=== PATIENT | female | born 1955 | race Caucasian/White ===

== ENCOUNTER 2022-07-16 12:55 | Emergency (ER) | payer MEDICARE, SELFPAY ==
[2022-07-16 13:04] VITALS: BP 175/110; PULSE 74; RESP 18; TEMP 36.5; O2SAT 95; BMI 22.7
--- NOTE | 2022-07-16 13:26 | CRLHL7_ITS ---
For Patients: As a result of the Century Cures Act, medical imaging exams and procedure reports are released immediately into your electronic medical record. You may view this report before your referring provider. If you have questions, please contact your health care provider. Indication: Left shoulder pain. Technique: Left shoulder 3 views. Comparison: None. FINDINGS/IMPRESSION: Acute complete comminuted fracture of the humeral neck with approximately 3 large fragments. There is medial displacement and lateral angulation the distal fracture fragment. Remaining osseous structures are intact. Dictated by Frankie Alvares MD @ 07/16/2022 2:24:32 PM (Electronically Signed)
--- NOTE | 2022-07-16 13:27 | ED.GENADULT ---
HPI - General Adult General Chief complaint: Shoulder Injury/Pain Stated complaint: Fell injured LT shoulder Time Seen by Provider: 07/16/22 12:57 History of Present Illness HPI narrative: This 67-year-old female comes in with an injury to her left shoulder that occurred just prior to arrival. She slipped on ice and fell onto her left shoulder. She has pain and swelling in the proximal portion of her left humerus. She states that she did bump her head but did not have any loss of consciousness. She does not report any other injury. She was able to get up and ambulate after the fall. Prior to this she has been in good health. Related Data Home Medications Medication Instructions Recorded Confirmed atenolol 50 mg tablet mg 07/16/22 lisinopril 40 mg tablet mg 07/16/22 Previous Rx's Medication Instructions Recorded hydrocodone 5 mg-acetaminophen 325 1 tab PO Q4-6H PRN pain #30 tabs 07/16/22 mg tablet Allergies Allergy/AdvReac Type Severity Reaction Status Date / Time No Known Drug Allergies Allergy Verified 07/16/22 13:03 Review of Systems Status of ROS: Reports: 10 or more systems reviewed and unremarkable except as noted in History and below Narrative: Constitutional: No fevers, no weight gain or loss. Eyes: No discharge. No vision changes. HENT: No congestion, no sore throat, no ear pain. Cardiovascular: No chest pain, no palpitations. Respiratory: No shortness of breath, no wheezes, no cough. Gastrointestinal: No abdominal pain, no vomiting, no diarrhea. Genitourinary: No dysuria, no hematuria. Musculoskeletal: Left shoulder injury as described above. Skin: No rashes, no pruritis. Neurological: No dizziness, weakness, sensory change, speech change. Endo/Heme/Allergies: No bruising or bleeding. No polydipsia. Pysch: no suicidality, no anxiety, no insomnia. All other systems reviewed and are negative. Exam Narrative: Exam Narrative: Constitutional: Well-developed, well-nourished, no acute distress. HEENT: Normocephalic, atraumatic. Neck: Normal range of motion. Nontender. Supple. Heart: Regular. No murmurs. Normal rate. Intact distal pulses. Lungs: Clear to auscultation. No chest discomfort. No wheezes, rhonchi, or rales. Abdomen: Normal bowel sounds. Nontender. No rebound tenderness. Genitalia: Deferred. Back: No midline tenderness. Normal range of motion. Extremities: Pain and swelling in the left proximal humerus. No pain when palpating along the left clavicle. Skin: Intact. No rash. Warm. No erythema or pallor. Neurologic: No altered sensation. No weakness. Alert and oriented. Psychiatric: No suicidality. No anxiety or depression. No insomnia. Nursing notes and vitals signs are reviewed. Const: Vital Signs, click to edit/add: Vital Signs - 24 hr 07/16/22 13:04 07/16/22 13:48 07/16/22 14:20 Temperature 97.7 F Pulse Rate [Right Pulse Oximeter] 74 70 60 Respiratory Rate 18 18 Blood Pressure [Ri ght Upper Arm] 175/110 H Pulse Oximetry 95 99 95 Oxygen Delivery Me thod Room Air Room Air Course Vital Signs Vital signs: Initial Vital Signs Temperature 97.7 F 07/16/22 13:04 Temperature Source Temporal Artery Scan 07/16/22 13:04 Pulse Rate 74 07/16/22 13:04 Respiratory Rate 18 07/16/22 13:04 Blood Pressure 175/110 H 07/16/22 13:04 Blood Pressure Mean 131 07/16/22 13:04 Blood Pressure Position Sitting 07/16/22 13:04 Pulse Oximetry 95 07/16/22 13:04 Oxygen Delivery Method 07/16/22 13:04 Vital Signs Temperature 97.7 F 07/16/22 13:04 Pulse Rate 74 07/16/22 13:04 Respiratory Rate 18 07/16/22 13:04 Blood Pressure 175/110 H 07/16/22 13:04 Pulse Oximetry 95 07/16/22 13:04 Oxygen Delivery Method 07/16/22 13:04 Temperature 97.7 F 07/16/22 13:04 Pulse Rate 60 07/16/22 14:20 Respiratory Rate 18 07/16/22 13:48 Blood Pressure 175/110 H 07/16/22 13:04 Pulse Oximetry 95 07/16/22 14:20 Oxygen Delivery Method 07/16/22 14:20 Medical Decision Making MDM Narrative Medical decision making narrative: This 67-year-old female has an injury to her left shoulder. X-ray images show a comminuted fracture of the proximal left humerus. The patient received an intramuscular injection of morphine 10 mg. She is placed in a sling and arrangements are made for follow-up appointment with orthopedic clinic. She also received a prescription for [place]. Imaging Data XR L Shoulder: Radiologist's impression: Acute complete comminuted fracture of the humeral neck with approximately 3 large fragments. There is medial displacement and lateral angulation the distal fracture fragment. Remaining osseous structures are intact. Discharge Plan Discharge Clinical Impression: Fracture, humerus Patient Disposition: Home w/ Parent or Adult Condition: Unchanged Additional Instructions: Wear sling and take medication for pain as needed and directed. Follow up with orthopedic clinic appointment as scheduled. Return if worsening. Prescriptions: New hydrocodone-acetaminophen 5-325 mg tablet 1 tab PO Q4-6H PRN (Reason: pain) Qty: 30 0RF No Action lisinopril 40 mg tablet Label Comments: TAKE 1 TABLET BY MOUTH EVERY DAY atenolol 50 mg tablet Label Comments: TAKE 1 TABLET BY MOUTH EVERY DAY Follow Up/Referrals: Frankie Rosas MD [Primary Care Provider] - Stand Alone Forms: [employer] Info Instructions
[2022-07-16] MEDS: MORPHINE 10 MG/ML inj IM (13:34)
[2022-07-16 13:48] VITALS: PULSE 70; RESP 18; O2SAT 99
[2022-07-16 14:20] VITALS: PULSE 60; O2SAT 95
== END 2022-07-16 15:06 | disposition home or self-care (01) ==
PROVIDERS: Emergency Provider Emergency Medicine Emergency Medical Services; PCP Family Medicine
DX: S42.232A 3-part fracture of surgical neck of left humerus, initial encounter for closed fracture (principal); W00.0XXA Fall on same level due to ice and snow, initial encounter
CPT/HCPCS: 73030; 96372; 99283; 99284; J2270

== ENCOUNTER 2022-07-19 13:34 | Outpatient (CLI) | payer MEDICARE, SELFPAY ==
[2022-07-19 21:51] LABS: Chloride* 99 mmol/L (96-114)
[2022-07-19 21:52] LABS: Potassium* 3.8 mmol/L (3.6-5.1); Sodium* 130 mmol/L (135-149)
[2022-07-19 21:54] LABS: Carbon Dioxide* 23 mmol/L (20-32); Creatinine* 0.6 mg/dL (0.5-1.5); Estimated Glomerular Filt Rate 99 ml/min
[2022-07-19 21:55] LABS: Blood Urea Nitrogen* 10 mg/dL (7-30); Calcium* 8.5 mg/dL (8.4-10.6); Glucose* 166 mg/dL (60-115)
[2022-07-19 23:03] LABS: Basophils Absolute Auto 0.02 K/uL (0.00-0.30); Basophils Percent Auto 0.2 % (0.0-3.0); Eosinophils Absolute Auto 0.02 K/uL (0.00-0.50); Eosinophils Percent Auto 0.2 % (0.0-7.0); Hematocrit 28.5 % (33.0-51.0); Hemoglobin* 9.7 gm/dL (12.0-16.0); Immature Granulocytes Abs Auto 0.07 K/uL (0.00-0.30); Immature Granulocytes Pct Auto 0.7 %; Mean Corpuscular HGB Conc 34 gm/dL (32-36); Mean Corpuscular Hemoglobin 31 pg (26-34); Mean Corpuscular Volume 90 fL (80-100); Monocytes Percent Auto 8.6 % (0.0-11.0); Neutrophils Percent Auto 83.3 % (42.0-72.0); Platelet Count* 238 K/uL (140-440); RDW Coefficient of Variation % 12.3 % (11.5-15.5); Red Blood Count 3.17 m/uL (4.00-5.20); White Blood Count* 10.55 K/uL (4.50-11.00)
[2022-07-19 23:26] LABS: Slide Review Reflex No
== END 2022-07-19 13:35 | disposition home or self-care (01) ==
PROVIDERS: PCP Family Medicine; Visit Provider Nurse Practitioner Family
DX: Z01.818 Encounter for other preprocedural examination (principal)
CPT/HCPCS: 80048; 85025

== ENCOUNTER 2022-07-20 08:22 | Day surgery (SDC) | payer MEDICARE, SELFPAY ==
[2022-07-20] VITALS (15 sets, daily range): BP systolic 121–174; BP diastolic 65–97; PULSE 72–90; RESP 15–20; TEMP 36.5–37.2; O2SAT 93–100; BMI 26.1
[2022-07-20] MEDS: SODIUM CHLORIDE 0.9 % (FLUSH) 10 ML SYRINGE IVF (09:20)
[2022-07-20] MEDS: LACTATED RINGERS 1000 ML 1,000 ML 100 ML IV ×2 (09:20→14:05)
--- NOTE | 2022-07-20 09:33 | SUR.PREOP ---
home covid test negative
--- NOTE | 2022-07-20 09:36 | SUR.PREOP ---
TIME?OUT:?1039 PT/RN/MDA?VERIFICATION?OF?SURGICAL?SITE,?PROCEDURE,?AND?CONSENT OBTAINED?PRIOR?TO?INVASIVE?PROCEDURE.
[2022-07-20] MEDS: MIDAZOLAM HCL 1 MG/ML inj IVP (10:40)
[2022-07-20] MEDS: fentaNYL 100 MCG/2 ML inj IVP (10:40)
--- NOTE | 2022-07-20 10:44 | W.PM.NB ---
Nerve Block Nerve Block Time Seen by Provider: 10:41 Date Seen: 07/20/22 Type of block requested by surgeon for post-operative analgesia: supraclavicular Side: left Time out performed: Yes Verification of patient name: Yes Verification of date of : Yes Site marking: site marked Name of person performing procedure: Deondre Continuous monitoring Was continuous monitoring of O2 sat, B/P, quality assurance monitor final, recorded every 15 minutes?: Yes Procedure Checklist: sterile prep, needles and gloves Ultrasound guided. Images saved: Yes Medications given in 5ml increments after negative aspiration: Ropivicaine %: 0.5 mL: 20 Needle gauge: 22 Decadron (mg): 10 Precedex (mcg): 25 Patient tolerated procedure well: Yes Block Charges Block Charge (with Pro Fee): Brachial Plexus Use of Ultrasound Machine for Block: Yes- US Guidance/pain block
--- NOTE | 2022-07-20 11:15 | CRLHL7_ITS ---
For Patients: As a result of the Cures Act, medical imaging exams and procedure reports are released immediately into your electronic medical record. You may view this report before your referring provider. If you have questions, please contact your health care provider. Indication: ORIF LEFT HUMERUS Technique: One fluoroscopic image of the left shoulder. Fluoroscopic time 48.4 seconds. IMPRESSION: Fluoroscopic guidance for open reduction internal fixation of proximal humeral fracture. Dictated by Frankie Braswell MD @ 07/20/2022 3:36:26 PM (Electronically Signed)
--- NOTE | 2022-07-20 13:20 | W.ANESCHARGE ---
Anesthesia Charges Start Date/Time Anesthesia Start Date: 07/20/22 Anesthesia Start Time: 10:50 Stop Date/Time Anesthesia Stop Date: 07/20/22 Anesthesia Stop Time: 13:15 Summary Emergency: No
--- NOTE | 2022-07-20 13:44 | W.ANESCHARGE ---
Anesthesia Charges Start Date/Time Anesthesia Start Date: 07/20/22 Anesthesia Start Time: 10:50 Stop Date/Time Anesthesia Stop Date: 07/20/22 Anesthesia Stop Time: 13:15 Summary Emergency: No
--- NOTE | 2022-07-20 13:51 | SUR.PHASEI ---
patient met discharge criteria per anesthesia
--- NOTE | 2022-07-20 14:26 | P.ORPRC_ITS ---
Procedure Note Date of procedure: 07/20/22 Procedure: PREOPERATIVE DIAGNOSES: 1. Left proximal humerus fracture - primarily surgical neck with significant varus deformity and shortening. Extra-articular. Acute. POSTOPERATIVE DIAGNOSES: 1. Left proximal humerus fracture - primarily surgical neck with significant varus deformity and shortening. Extra-articular. Acute. NAME OF OPERATION: 1. Left proximal humerus open reduction internal fixation 2. 48866 - intraoperative fluoroscopy up to 1 hour. SURGEON: Jw Ceballos MD BLOCKER HEATED METAL FORMS: Renan Lopez - Of note, a skilled medical assistant was critical for this case to aide in patient positioning, limb manipulation, tissue retraction, closure, and splinting. ANESTHESIA: General endotracheal anesthetic plus Supraclavicular block EBL: 150 mL IMPLANTS: Arthrex alpha full proximal humerus plate with locking proximal cancellous as well as locking and nonlocking distal cortical screws. TOURNIQUET: None. INDICATIONS: The patient is a pleasant, 67-year-old female who sustained a left shoulder injury after a fall. They presented to [facility] where x- rays were obtained and revealed a proximal humerus fracture with significant translation of the shaft relative to the head. They had difficulty with use of the extremity and deformity. Given these findings, surgery was recommended to improve the position and stablize the fracture. FINDINGS: Closed, 3 part primarily proximal humerus fracture with varus angulation and shortening and 100% displacement as well as comminution. Overall, the lesser and greater tuberosities were still in appropriate positions. PROCEDURE: Following a thorough discussion of risks, benefits, and alternatives, consent was obtained and the operative extremity was marked. The patient was brought to the operating room and placed supine on the operating table. Induction of anesthesia was achieved. Appropriate time out was performed identifying proper patient, site and procedure. 2 g IV Ancef was administered within 1 hour of incision preoperatively. The left upper extremity was prepped and draped in the appropriate sterile fashion using ChloraPrep prep. A longitudinal incision made for a deltopectoral approach extending distally to an anterolateral approach of the arm. Sharp incision through skin and blunt dissection through subcutaneous tissue allowed us to identify the cephalic vein. This was retracted laterally and severe throughout the case. Deltopectoral interval was identified and mobilized. Conjoined tendon was mobilized medially. The deltoid adhesions were mobilized from the humerus and the rotator cuff/subacromial space region. The bursa was excised with a rongeur. The proximal humerus was debrided of interposed periosteum and fracture hematoma. The fracture was decompressed with a combination of axial traction as well as Garcia elevator pushing on the humeral head. C-arm fluoroscopic imaging was utilized throughout the case to confirm proper realignment of the head relative to the shaft. The bicipital groove was utilized to help with rotational realignment. An Arthrex alpha plate was selected and temporally stabilized with K-wires. The height was confirmed as was the alignment on the humerus itself. The oblong holes in the cortical shaft was 1st drilled and a screw placed after confirming the proper height to be appropriate. Then, multiple proximal locking screws were placed. C-arm confirmed these to be extra-articular and within the humeral head itself. Distal locking screws were then placed to complete the fixation. C-arm again confirmed on both AP and lateral planes of the humerus that the fracture reduction was in appropriate position. Screws were found to be extra-articular. No crepitus was found with range of motion. At this stage, the wound was thoroughly irrigated with normal saline. Closure performed with 0 Vicryl for the deltoid reapproximation. Then, 3-0 Vicryl for the subcutaneous, and 4-0 Monocryl for subcuticular closure. Dressings were applied and the patient was awoken from anesthesia and transferred to PACU in stable condition. A skilled medical assistant was critical for this case to aid in patient positioning, tissue retraction, limb manipulation/positioning, awareness and protection of critical structures, and closure. PLAN: 1. Sling to operative extremity. May come out of this for elbow, forearm, wrist, digit range of motion and pendulums of the shoulder. 2. Ice, acetominphen or ibuprofen PRN. 3. Percocet for pain as needed. 4. Follow up with PA visit in 7-10 days for wound check and initiation of physical therapy for passive range of motion and edema control and periscapular strengthening.
== END 2022-07-20 14:43 | disposition home or self-care (01) ==
PROVIDERS: Visit Provider Orthopaedic Surgery Sports Medicine
PROC: (CPT 23615; principal; 2022-07-20 11:15)
DX: S42.292A Other displaced fracture of upper end of left humerus, initial encounter for closed fracture (principal); M25.512 Pain in left shoulder
CPT/HCPCS: 23615; 01630; 64415; 73060; 76000; 76942; C1713; J0330; J1100; J1170; J2250; J2405; J2704; J2795; J3010; J7120

== ENCOUNTER 2022-09-30 13:38 | Outpatient (CLI) | payer MEDICARE, SELFPAY ==
[2022-09-30 15:21] LABS: Basophils Absolute Auto 0.03 K/uL (0.00-0.30); Basophils Percent Auto 0.3 % (0.0-3.0); Eosinophils Absolute Auto 0.14 K/uL (0.00-0.50); Eosinophils Percent Auto 1.5 % (0.0-7.0); Hemoglobin* 11.8 gm/dL (12.0-16.0); Immature Granulocytes Abs Auto 0.01 K/uL (0.00-0.30); Immature Granulocytes Pct Auto 0.1 %; Lymphocytes Percent Auto 12.5 % (20-44); Mean Corpuscular HGB Conc 32 gm/dL (32-36); Mean Corpuscular Hemoglobin 28 pg (26-34); Mean Corpuscular Volume 88 fL (80-100); Monocytes Percent Auto 10.8 % (0.0-11.0); Neutrophils Percent Auto 74.8 % (42.0-72.0); Platelet Count* 388 K/uL (140-440); RDW Coefficient of Variation % 12.6 % (11.5-15.5); Red Blood Count 4.22 m/uL (4.00-5.20)
[2022-09-30 15:25] LABS: Albumin* 3.8 g/dL (3.3-5.0); Chloride* 105 mmol/L (96-114); Potassium* 4.2 mmol/L (3.6-5.1); Sodium* 136 mmol/L (135-149)
[2022-09-30 15:27] LABS: Aspartate Amino Transferase* 26 U/L (12-35); Bilirubin Total* 0.3 mg/dL (0.1-1.5); Blood Urea Nitrogen* 9 mg/dL (7-30); Carbon Dioxide* 24 mmol/L (20-32); Cholesterol* 161 mg/dL (90-199); Creatinine* 0.6 mg/dL (0.5-1.5); Estimated Glomerular Filt Rate 99 ml/min; Total Protein* 7.6 g/dL (6.0-8.3)
[2022-09-30 15:28] LABS: Alanine Aminotransferase* 20 U/L (4-35); Alkaline Phosphatase* 85 U/L (40-150); Calcium* 9.3 mg/dL (8.4-10.6); Glucose* 108 mg/dL (60-115); HDL Cholesterol* 45 mg/dL (>=50); LDL Cholesterol Calculated 95 mg/dL (<100); Slide Review Reflex No; Triglycerides* 106 mg/dL (40-149)
== END 2022-09-30 13:39 | disposition home or self-care (01) ==
PROVIDERS: PCP Nurse Practitioner Family; Visit Provider Nurse Practitioner Family
DX: M54.9 Dorsalgia, unspecified (principal); R32 Unspecified urinary incontinence; R10.32 Left lower quadrant pain; I10 Essential (primary) hypertension; R73.9 Hyperglycemia, unspecified; Z13.6 Encounter for screening for cardiovascular disorders
CPT/HCPCS: 80053; 80061; 85025; 87086

== ENCOUNTER 2022-10-19 07:43 | Outpatient (CLI) | payer MEDICARE, SELFPAY ==
--- NOTE | 2022-10-19 08:00 | CRLHL7_ITS ---
For Patients: As a result of the Century Cures Act, medical imaging exams and procedure reports are released immediately into your electronic medical record. You may view this report before your referring provider. If you have questions, please contact your health care provider. Indication: LLQ PAIN, CONSTIPATION, CRAMPING Technique: Postcontrast CT abdomen and pelvis. 78 cc Isovue 370 intravenous contrast. Please note that all CT scans at this facility use dose modulation, iterative reconstruction, and/or weight-based dosing when appropriate to reduce radiation dose to as low as reasonably achievable. Comparison: None Findings: Minimal scarring is present within both lung bases. No pleural effusion. There is no suspicious intrahepatic mass. Mild cardiomegaly may be present. The adrenal glands are normal. Normal spleen. The kidneys are unremarkable. Normal pancreas. The gallbladder is within normal limits. Severe inflammatory changes involving the proximal sigmoid colon are present. The sigmoid colon wall measures up to approximately 1.1 cm. Intramural abscess formation appears to be present measuring approximately 2.6 cm, series 2, image 99. No bowel obstruction or free intraperitoneal air. Adjacent inflammatory stranding in the left lower quadrant mesenteric fat along with mildly prominent mesenteric lymph nodes. No venous thrombus. Chronic deformity involving the superior endplate of L5. Severe degenerative disc disease on the right at L2-3. Impression: Severe sigmoid colon diverticulitis with intramural abscess formation. Surgical referral recommended. Percutaneous aspiration is not indicated. Please note that all CT scans at this facility use dose modulation, iterative reconstruction, and/or weight-based dosing when appropriate to reduce radiation dose to as low as reasonably achievable. Dictated by Frankie Braswell MD @ 10/19/2022 1:14:16 PM (Electronically Signed)
== END 2022-10-19 07:44 | disposition home or self-care (01) ==
LOC: CT 07:43
PROVIDERS: PCP Nurse Practitioner Family; Visit Provider Nurse Practitioner Family
DX: R10.32 Left lower quadrant pain (principal); K57.32 Diverticulitis of large intestine without perforation or abscess without bleeding; K59.00 Constipation, unspecified
CPT/HCPCS: 74177; Q9967

== ENCOUNTER 2022-10-20 15:58 | Outpatient (CLI) | payer MEDICARE, SELFPAY ==
--- NOTE | 2022-10-20 16:00 | CRLHL7_ITS ---
For Patients: As a result of the Cures Act, medical imaging exams and procedure reports are released immediately into your electronic medical record. You may view this report before your referring provider. If you have questions, please contact your health care provider. Indication: Infected wound Technique: Grayscale sonographic images of the right internal jugular vein and right basilic vein. IMPRESSION: Sonographic guidance for right arm PICC line placement. Dictated by Frankie Braswell MD @ 10/21/2022 11:29:00 AM (Electronically Signed)
--- NOTE | 2022-10-20 16:00 | CRLHL7_ITS ---
For Patients: As a result of the Century Cures Act, medical imaging exams and procedure reports are released immediately into your electronic medical record. You may view this report before your referring provider. If you have questions, please contact your health care provider. INDICATION: Post PICC. TECHNIQUE: Chest 1 views. COMPARISON: None. FINDINGS: Cardiovascular and mediastinum: Cardiomediastinal silhouette is within normal limits. Right approach PICC is identified with distal tip at the superior cavoatrial junction. Lungs and pleural spaces: Lungs are clear. No sign of pleural effusion. No pneumothorax. Bones and soft tissues: No significant findings. IMPRESSION: Appropriately positioned PICC.. Dictated by Rupali Gray MD @ 10/20/2022 5:29:20 PM (Electronically Signed)
== END 2022-10-20 15:59 | disposition home or self-care (01) ==
LOC: US 15:59
PROVIDERS: PCP Nurse Practitioner Family; Visit Provider Nurse Practitioner Family
DX: K57.90 Diverticulosis of intestine, part unspecified, without perforation or abscess without bleeding (principal)
CPT/HCPCS: 36573

== ENCOUNTER 2022-10-26 14:45 | Outpatient (RCR) | payer MEDICARE, SELFPAY ==
--- NOTE | 2022-10-20 17:40 | PC.NURSE ---
PICC verified with X-ray. arm circumference 28cm per PICC nurse measurement
[2022-10-20] MEDS: ERTAPENEM 1 GM inj IVPB (17:41)
--- NOTE | 2022-10-20 18:31 | PC.NURSE ---
PATIENT PLEASANT AND COOPERATIVE, TOLERATED ABX INFUSION WELL.
[2022-10-21 15:13] VITALS: BP 155/90; PULSE 88; RESP 16; TEMP 36.6; O2SAT 94
[2022-10-21] MEDS: ERTAPENEM 1 GM inj IVPB (15:24)
[2022-10-22] MEDS: ERTAPENEM 1 GM inj IVPB (14:04)
[2022-10-22 14:05] VITALS: BP 196/97; PULSE 78; RESP 18; TEMP 35.8; O2SAT 99
--- NOTE | 2022-10-22 14:06 | PC.NURSE ---
Pt has h/o HTN. BP 196/97 on arrival. States reports she took her BP meds late this morning. Will recheck BP after infusion.
[2022-10-22] MEDS: 0.9 % SODIUM CHLORIDE 250 ml IV (14:27)
[2022-10-22] MEDS: SODIUM CHLORIDE 0.9 % (FLUSH) 10 ML SYRINGE 5 ML IVF (14:27)
[2022-10-22 14:56] VITALS: BP 189/85
--- NOTE | 2022-10-22 14:57 | PC.NURSE ---
BP remains high at 189/85. Patient expressing anxiety, but no other symptoms. Dr. Nice advise patient goes home, relax and recheck blood pressure. If remains elevated at 180 SBP or higher, patient to call primary clinic for further instructions. Pt tolerated IV antibiotic infusion well. PICC line site asymptomatic, line flushes easily.
[2022-10-23] MEDS: ERTAPENEM 1 GM inj IVPB (14:04)
[2022-10-23] MEDS: SODIUM CHLORIDE 0.9 % (FLUSH) 10 ML SYRINGE 5 ML IVF (14:08)
[2022-10-23 14:09] VITALS: BP 146/70; PULSE 75; RESP 16; TEMP 36.1; O2SAT 99
--- NOTE | 2022-10-23 14:37 | PC.NURSE ---
IV antibotic. Pt has been pleasant. abd pain/crampy 3-4/10. Pt tolerated IV antibiotic infusion well. PICC line site asymptomatic, line flushes easily. flushed before and after with no problems.
[2022-10-24 15:08] VITALS: BP 163/82; PULSE 74; RESP 16; TEMP 36.3; O2SAT 98
[2022-10-24] MEDS: ERTAPENEM 1 GM inj IVPB (15:11)
[2022-10-24 15:16] VITALS: BP 163/28; PULSE 74; RESP 16; TEMP 36.3; O2SAT 98
[2022-10-25 15:10] VITALS: BP 160/86; PULSE 76; RESP 16; TEMP 36.4; O2SAT 97
[2022-10-25] MEDS: 0.9 % SODIUM CHLORIDE 250 ml IV ×2 (15:15→15:16)
[2022-10-25] MEDS: ERTAPENEM 1 GM inj IVPB (15:15)
[2022-10-25] MEDS: SODIUM CHLORIDE 0.9 % (FLUSH) 10 ML SYRINGE 5 ML IVF (15:15)
[2022-10-26 15:07] VITALS: BP 166/78; PULSE 78; RESP 16; TEMP 36.2; O2SAT 98
[2022-10-26] MEDS: ERTAPENEM 1 GM inj IVPB (15:13)
== END 2022-10-27 16:00 | disposition home or self-care (01) ==
LOC: CCIC 14:45
PROVIDERS: PCP Nurse Practitioner Family; Referring Provider Nurse Practitioner Family; Visit Provider Nurse Practitioner Family
DX: K63.0 Abscess of intestine (principal)
CPT/HCPCS: 96365; 99211; C1751; J1335; J7050

== ENCOUNTER 2023-05-22 13:57 | Outpatient (CLI) | payer MEDICARE, SELFPAY | END 2023-05-22 13:58 | disposition home or self-care (01) | LOC: KYNREF 14:00 | PROVIDERS: PCP Nurse Practitioner Family; Visit Provider Nurse Practitioner Family | DX: I10 Essential (primary) hypertension (principal) | CPT/HCPCS: 85025 ==

== ENCOUNTER 2023-06-23 10:46 | Outpatient (CLI) | payer MEDICARE, SELFPAY | END 2023-06-23 10:47 | disposition home or self-care (01) | LOC: NFLDREF 06-26 01:22 | PROVIDERS: PCP Nurse Practitioner Family; Referring Provider Nurse Practitioner Family; Visit Provider Nurse Practitioner Family | DX: R32 Unspecified urinary incontinence (principal); I10 Essential (primary) hypertension; Z12.39 Encounter for other screening for malignant neoplasm of breast | CPT/HCPCS: 81015 ==

== ENCOUNTER 2023-07-07 16:46 | Outpatient (CLI) | payer MEDICARE, SELFPAY | END 2023-07-07 16:47 | disposition home or self-care (01) | PROVIDERS: PCP Nurse Practitioner Family; Visit Provider Nurse Practitioner Family | DX: N39.0 Urinary tract infection, site not specified (principal) | CPT/HCPCS: 81015; 87086 ==

== ENCOUNTER 2023-08-04 12:36 | Outpatient (CLI) | payer MEDICARE, SELFPAY | END 2023-08-04 12:37 | disposition home or self-care (01) | PROVIDERS: PCP Nurse Practitioner Family; Visit Provider Nurse Practitioner Family | DX: R30.0 Dysuria (principal) | CPT/HCPCS: 81015; 87086 ==

== ENCOUNTER 2023-09-01 10:30 | Outpatient (RCR) | payer MEDICARE, SELFPAY ==
--- NOTE | 2023-05-24 09:08 | PT.OPEX ---
PT [facility] Eval PT [facility] Outpatient Eval Start: 05/23/23 07:45 Freq: Status: Active Protocol: Document 05/23/23 07:46 AMS (Rec: 05/23/23 16:53 AMS [id number]) E-signed By Regi Arrington PT Physical Therapy Outpatient Evaluation Insurance Information Recert Due Date 08/16/23 Insurance Name Medicare B,Other; See Comments Insurance Information/Comments AARP Medical Diagnosis Bilateral hip pain Treating Diagnosis Right hip pain Left hip pain Low back pain Muscle weakness Difficulty walking Referring MD Marisol Garcia Subjective Subjective The patient is a pleasant 68- year-old female presenting ambulatory to the clinical setting today on hospital follow-up some [facility], the admission date was on , the discharge date was on 05/20/2023. principal diagnosis gastric soft a GHANSHYAM reflux disease with esophagitis with bleeding secondary diagnosis is: Principal problem gastroesophageal reflux disease with esophagitis with bleeding, atrial fibrillation paroxysmal, ulcer gastric, also does walk in all, anemia post hemorrhagic acute blood loss anemia. In reviewing the details of the hospital stay, the patient had black tarry stools, presenting to the emergency room on 05/15/2023 with a hemoglobin of 7.5, with lower blood pressures 90s over 50s, she is rehydrated with IV fluids transfuse with 1 unit of blood and after 1 unit her orthostatic symptoms resolved. The patient was PERT placed on a PPI IV. The patient did have some concerns for small thrombosis in the right lower lobe however a subsequent JUANA did not show a thrombosis the patient did undergo an EGD, which revealed an LA grade B esophagitis, hiatal hernia, a non bleeding gastric and duodenal ulcers, biopsy showed no dysplasia the patient initially was started on heparin which was discontinued , the thrombus was ruled out the patient did have a atrial fibrillation with RVR. - Marisol Garcia 05/22/23; confirmed by patient Patient presents to physical therapy for subacute right > left buttock/hip pain. She is 3 days s/p discharge from hospital for esophagitis w/ anemia at [facility] (see details above); she had one unit of blood transfused to stabilize hemoglobin. Per patient, her Hgb is now stabilized, but has some more testing in the next few weeks to further determine source of GI bleeding. In regards to today's visit, her buttock pain started gradually on the left side in mid-April without injury. It was located on the left side at first, then she went to the chiropractor for hip adjustment this month and it switched to the right side, located to the posterior hip/ buttock. She describes the pain as a stretch and ache in the buttock. Functional limitations/aggravating factors include walking longer than a short distance, standing longer periods, sleeping on her side, and lifting at work. Easing factors include Tylenol, using a cane in right hand, rest, and topical cream. She started using the single point cane 3 days ago after coming home from the hospital, but is independent at baseline without it. Denies hx of injury to the hip or low back. Does endorse intermittent N/T in her bilateral toes that started earlier this month and also intermittent midline low back pain that has been going on for over one year. Had X- rays of her hip done, which showed bilateral mild to moderate degenerative changes in her hips and lumbar spine. Her goals are to recover her strength, decrease hip pain, and walk without her cane again. She is not currently exercising, but stays active with her job at [employer]. 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 She is off work on leave until Monday. PMHx significant for atrial fibrillation with RVR, osteopenia, HTN, and stage II colon adenocarcinoma with resection in January. This PMHx was gathered via chart review , as pt denies any history of cancer/cardiac concerns. Patient reports she lives at home with her . States she takes stairs one at a time at home, as she is still recovering strength. Has had one fall in last year in July, when she broke her humerus and required ORIF surgery. She does feel a little unsteady. 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 Foot clearance improved with use of SPC. BALANCE Single leg stance: 2 sec BL END RANGE QUAD CONTROL Straight leg raise: No quad lag, more fatiguing on R LUMBAR ROM Flexion: To mid-inman, no pain Extension: 90% limited Right Sidebendin%, to knee Left Sidebendin%, to just above knee Right rotation: 100% Left rotation: 50% limited HIP ROM Flexion: 120/120 Extension: Unable to assess d/ t intolerance to prone position, appears WNL with gait Internal Rotation: WNL External Rotation: WNL Abduction: WNL LE MMT: Hip flexion: R 4/5 L 4+/5 Hip abduction: R 4/5 L 4+/5 Hip extension: Able to perform DL bridge with difficulty Knee flexion: R 4/5 L 4+/5 Knee extension: R 4/5 L 4+/5 30 sec STS: 9 reps SPECIAL TEST Hip Labral/Intra-articular Pathology: -JANEY: + right -FADIR: - -Log Roll: - Hip impingement: -Scour test: + right Low back SLR: - Hamstring 90-90: + BL Piriformis test: + right JOINT MOBILITY/PALPATION Unable to assess lumbar palpation/mobility d/t intolerance to prone position. Mild TTP over right gluteal musculature. No TTP over lateral hip. TX: Access Code: [email or web address] URL: [email or web address] Date: 05/23/2023 Prepared by: Rgei Arrington Exercises - Standing Lumbar Extension at Wall - Forearms - 1 x daily - 7 x weekly - 2-3 sets - 10 reps - Supine Lower Trunk Rotation - 1 x daily - 7 x weekly - 2- 3 sets - 10 reps - Supine Bridge - 1 x daily - 5 x weekly - 2-3 sets - 10 reps - Supine Straight Leg Raises - 1 x daily - 5 x weekly - 2-3 sets - 10 reps - Clamshell with Resistance - 1 x daily - 5 x weekly - 2-3 sets - 10 reps Functional Test Performed & Score JAYSON: Pt will fill out and return at next session Assessment Assessment/Impression Pt is a 68 -year-old female who presents with concerns of subacute right > left buttock/ hip pain and low to moderate severity and irritability. Signs and symptoms are likely indicating / consistent with hip osteoarthritis confirmed by X-rays/potential lumbar spine contribution to symptoms . X-ray also showed lumbar degenerative changes. On exam, patient also demonstrates notable objective findings including limited lumbar ROM, especially into extension/left sidebending and rotation, impaired balance, pain-free hip ROM, impaired gait, positive JANEY/Scour on right, and decreased general lower extremity strength R > L, leading to difficulties with walking, lifting for work, standing for longer periods, and sleeping on her sides. Pt does report intermittent N/T into bilateral feet, but no change in symptoms with repeated lumbar flexion/ extension. Notably, pt was hospitalized from 05/16 to for potential gastrointestinal bleeding/ esophagitis and received one unit of blood in transfusion. Demonstrates ongoing LE weakness/residual balance concerns following hospitalization and requires SPC for balance. Does not use SPC at baseline. PMHx significant for atrial fibrillation with RVR, osteopenia, HTN, and history of stage II colon adenocarcinoma w/ resection on 02/14/23 gathered via chart review, as pt appears to be unreliable historian. Patient is appropriate for skilled physical therapy services to address the above deficits. Pt was agreeable with plan of care and goals established. Primary Functional Limitations walking, lifting for work, standing for longer periods, and sleeping on her sides Plan of Care Rehabilitation Potential Good Physical Therapy Goals In 2 sessions: Pt will demonstrate independence with HEP to maximize progress in physical therapy. In 8-12 sessions: Pt will demonstrate 50% improvement in lumbar range of motion for improved ability to perform lifting duties at work. Pt will lift up to 25 lbs from the floor with good lifting mechanics and <3/10 hip and lumbar pain for improved ability to perform work duties . Pt will demonstrate >4/5 LE strength for all major muscle groups and 12 repetitions or more on 30 STS for improved lower extremity strength. Pt will ambulate without use of SPC for > 3 blocks with <3/ 10 hip/lumbar pain for improved ability to navigate community. Coordination/Communication With Referral Source Treatment Plan/Direct Interventions Gait Training,Joint Mobilization,Manual Therapy, Neuromuscular Re-ed,Self-Care/ Home Management,Therapeutic Activities,Therapeutic Exercises Frequency/Duration 1x/week for 8-12 sessions Patient Will Be Discharged From Therapy Completion of LTG(s), Independent w/HEP, Independently Progressing Evaluation Billing Untimed Code Treatment Minutes 30 Complexity Moderate Certification Information Initial Certification Date 05/23/23 Ending Certification Date 08/16/23 Provider Signature Shows Agreement With POC & Medical Necessity Physician Signature & Date Requested Please Sign/Date Here Physician Comment/Change : Physician NPI Number #
--- NOTE | 2023-08-18 14:14 | PT.OPDNX ---
PT [facility] Outpatient Daily Note PT [facility] Daily Note Start: 05/23/23 07:45 Freq: Status: Active Protocol: Document 08/18/23 12:58 AMS (Rec: 08/18/23 14:13 AMS [id number]) E-signed By Regi Arrington, PT PT OP Daily Progress Note Visit Information Note Type Daily Note,Recert/Progress Note Visit Number [id number] Insurance Information Recert Due Date 11/09/23 Insurance Name Medicare B,Other; See Comments Insurance Information/Comments AARP Medical Diagnosis Bilateral hip pain Treating Diagnosis Right hip pain Left hip pain Muscle weakness Low back pain Difficulty walking Referring MD Marisol Garcia Subjective Subjective Pt states her back and hip are getting better. She has been getting her exercises in more regularly. Feels more stiffness than anything worst in the morning/after inactivity. Just came off a 4- day work week, today off. Walks about 5-6 miles per shift, uses good lifting mechanics, but takes a toll on her nonetheless. Denies any trips, slips or falls recently . Pain Comments 0/10 pain hip 0/10 pain low back Precautions Treatment Precautions/Contraindications Atrial fibrillation with RVR, s/p hospitalization with 05/20 d/c, osteopenia, HTN, history of stage II colon adenocarcinoma w/ resection on 02/14/23 Home Exercise Home Exercise Comments Access Code: [email or web address] URL: [email or web address] Date: 08/18/2023 Prepared by: Regi Arrington Exercises - Supine Lower Trunk Rotation - 1 x daily - 7 x weekly - 2- 3 sets - 10 reps - Supine Figure 4 Piriformis Stretch - 1 x daily - 7 x weekly - 3 sets - 30-60 seconds hold - Sit to Stand Without Arm Support - 1 x daily - 4 x weekly - 2-3 sets - 10 reps - 10 lbs weight - Half Deadlift with Kettlebell - 1 x daily - 4 x weekly - 2-3 sets - 10 reps - 10 lbs weight - Single Leg Stance with Support - 1 x daily - 7 x weekly - 3 sets - 30-60 sec hold - Hooklying Single Knee to Chest Stretch - 1 x daily - 7 x weekly - 3 sets - 30-60 seconds hold - Cat Cow - 1 x daily - 7 x weekly - 2 sets - 10 reps - Supine Bug with Leg Extension - 1 x daily - 4 x weekly - 2 sets - 10 reps Objective Other/Pertinent Objective Posture: Forward head, rounded shoulders, increased thoracic kyphosis/R rib hump, R LE longer/R ASIS lower Gait assessment: Ambulates with no AD, mild postural sway /mildly decreased foot clearance BL. Mildly decreased hemal. Previous findings: BALANCE Single leg stance: 13 sec on L leg, 11 sec R leg LUMBAR ROM (today) Flexion: To distal inman, no pain Extension: 75% limited Right Sidebending: to lateral joint line Left Sidebending: to lateral joint line Right rotation: 50% Left rotation: 50% LE MMT: Hip flexion: R 4+/5 L 5/5 Hip abduction: R 4/5 L 4+/5 Hip extension: R 5/5 L 5/5 Knee flexion: R 5/5 L 5/5 Knee extension: R 5/5 L 5/5 30 sec STS: 13 reps (08/18/23) SPECIAL TEST Hip Labral/Intra-articular Pathology: -JANEY: + right Hip impingement: -Scour test: + right JOINT MOBILITY/PALPATION Mild TTP over L5-S1/ hypomobility with spring testing. Mild TTP over right gluteal musculature. No TTP over lateral hip. Functional Test Performed & Score LEFS: 65/80 = 81% JAYSON: 12%, 6/50 Patient Instructed in Risks/Benefits Yes Therapeutic Exercise Therapeutic Exercise Minutes (minutes) 38 Therapeutic Exercise: To Restore -Reassessment of objective Functional Status measures, reviewed PT goals/ HEP and remaining POC goals Patient was instructed in the following exercises to improve strength, tissue tolerance, and/or mobility with verbal/ tactile cues as needed: - Recumbent bike x 5 min, L3 - Supine bridge, 1 x 10 reps, 3-sec holds - Supine bridge with green TB at thighs 1 x 10 reps, 3-sec holds - Supine bug w/ opp leg in hooklying, 1 x 10 reps B - Hooklying shoulder flexion with 5 lb weight, 1 x 10 reps - Sidelying clamshell, 2 x 15 reps B, green TB - Seated lumbar flexion, 1 x 30 sec - Prone hip extensions, 1 x 10 reps B - Quadruped cat cow, 1 x 10 reps Therapeutic Activity Therapeutic Activity Minutes (minutes) 5 Therapeutic Activities Comments -Retested 30 sec STS, 13 reps completed -Suitcase carries 4 x 50', 12 lb KB Manual Therapy Techniques Manual Therapy Minutes (minutes) 5 Manual Therapy Techniques Gentle grade I-II central PA mobs to lumbar spine in prone for decreased pain. Pt reporting positive response/ relief. Treatment Minutes Timed Code Treatment Minutes 48 Total Treatment Time 48 Billing Units Therapeutic Activity Units 1 Therapeutic Exercise Units 2 Assessment/Impression Assessment/Impression Meghnaa presents to therapy with significantly improved low back/hip symptoms. She has met many of her PT goals at this time and demonstrates improved self-management of symptoms/ HEP compliance. Lumbar ROM remains similar to baseline, which is likely impacted by long-standing scoliosis/lumbar spine DJD, but pain-free this visit. Session focused on initiation of further trunk/ hip strengthening and lumbar mobility with good tolerance noted. Pt will continue to benefit from skilled PT services to address balance, residual strength deficits, and mobility. Plan of Care Physical Therapy Goals In 2 sessions: Pt will demonstrate independence with HEP to maximize progress in physical therapy. MET In 8-12 sessions: Pt will demonstrate 25% improvement in lumbar range of motion for improved ability to perform ADLs. PROGRESSING Pt will lift up to 25 lbs from the floor with good lifting mechanics and <3/10 hip and lumbar pain for improved ability to perform work duties . MET, difficulty with repetitive lifting Pt will demonstrate >4/5 LE strength for all major muscle groups and 12 repetitions or more on 30 STS for improved lower extremity strength. MET 07/12/23 Pt will ambulate without use of SPC for > 1 mile with <3/10 hip/lumbar pain for improved ability to navigate community. MET Pt will demonstrate improved balance by ability to perform SLS for >8 sec bilaterally. MET Daily Plan of Care Continue per POC Daily Plan of Care Comments Progress balance and LE strength Postural strengthening Lumbar mobility Recertification Information Initial Certification Date 05/23/23 Recertification Start Date 08/16/22 Recertification Due Date 11/09/23 Reasons to Continue Skilled Therapy Patient is a 68 year old female that presents with chronic bilateral hip pain/low back pain as well as gait imbalance/LE weakness s/p hospitalization in May. Patient reports significant improvement with skilled physical therapy services. Patient has achieved 5 of her 6 physical therapy goals at this time. Patient has shown improvement in physical therapy, demonstrating decreased pain, increased lumbar flexion range of motion , increased strength, improved balance, and increased tolerance to activity and load . Patient continues to present with intermittent pain, decreased lumbar RO (likely baseline), decreased strength, and decreased tolerance to activity. Patient would benefit from continued skilled PT services to address these issues and to maximize function. Rehabilitation Potential Good Continued Plan of Care and Interventions Therapeutic exercise, therapeutic activity, manual therapy, neuromuscular re- education Provider Signature Shows Agreement With POC & Medical Necessity
== END 2023-09-04 12:51 | disposition home or self-care (01) ==
PROVIDERS: PCP Nurse Practitioner Family; Visit Provider Nurse Practitioner Family
DX: M25.551 Pain in right hip (principal); M25.552 Pain in left hip; M54.50 Low back pain, unspecified; M62.81 Muscle weakness (generalized); R26.2 Difficulty in walking, not elsewhere classified; Z51.89 Encounter for other specified aftercare
CPT/HCPCS: 97110; 97112; 97140; 97162; 97530

== ENCOUNTER 2023-09-13 13:19 | Outpatient (CLI) | payer MEDICARE, SELFPAY ==
--- NOTE | 2023-09-13 13:20 | MM_ITS ---
Patient: ELOISA JAIN Facility:?[facility] Patient ID:?[id number] Site Patient ID:?[id number]. Site :?[id number] Study:?XRay-Breast Bilateral 3D W/CAD-09/13/2023 2:01:13 PM Ordering Physician:?Marisol Garcia Final Report: BILATERAL SCREENING MAMMOGRAM WITH COMPUTER-AIDED DETECTION AND TOMOSYNTHESIS TECHNIQUE: CC and MLO views were obtained. These mammographic images have been obtained using full-field digital technique. These mammographic images were interpreted with the benefit of computer-aided detection. Breast Tomosynthesis was used in this interpretation. COMPARISON FILM: 10/29/21, 12/02/16. FINDINGS: The breasts are almost entirely fatty. IMPRESSION: There is no radiographic evidence for malignancy. ASSESSMENT: BI-RADS Category 1: Negative RECOMMENDATION: Routine screening mammogram in 1 year. A lay language report of this examination will be provided to the patient. Frankie Braswell M.D. Diagnostic Radiologist [email or web address] DSM/sp R& Transcribed: 6:17 p.m. SP/Dictated by: Frankie Braswell MD @ 09/14/2023 11:40:00 AM Signed by:?Frankie Braswell MD @09/15/2023 5:31:13 AM (Electronic Signature)
== END 2023-09-13 13:20 | disposition home or self-care (01) ==
LOC: MAMMO 13:20
PROVIDERS: PCP Nurse Practitioner Family; Visit Provider Nurse Practitioner Family
DX: Z12.31 Encounter for screening mammogram for malignant neoplasm of breast (principal)
CPT/HCPCS: 77063; 77067

== ENCOUNTER 2024-08-01 14:22 | Outpatient (CLI) | payer MEDICARE, SELFPAY | END 2024-08-01 14:23 | disposition home or self-care (01) | LOC: RAD 14:24 | PROVIDERS: PCP Nurse Practitioner Family; Visit Provider Nurse Practitioner Family | DX: Z13.820 Encounter for screening for osteoporosis (principal); M85.88 Other specified disorders of bone density and structure, other site | CPT/HCPCS: 77080 ==

== ENCOUNTER 2024-08-02 13:27 | Outpatient (CLI) | payer MEDICARE, SELFPAY | END 2024-08-02 13:28 | disposition home or self-care (01) | PROVIDERS: PCP Nurse Practitioner Family; Visit Provider Nurse Practitioner Family | DX: I10 Essential (primary) hypertension (principal); Z13.6 Encounter for screening for cardiovascular disorders; Z13.0 Encounter for screening for diseases of the blood and blood-forming organs and certain disorders involving the immune mechanism | CPT/HCPCS: 80053; 80061; 85025 ==

== ENCOUNTER 2024-08-06 20:00 | Inpatient (IN) | payer MEDICARE, SELFPAY ==
[2024-08-06] VITALS (28 sets, daily range): BP systolic 92–132; BP diastolic 57–94; PULSE 90–128; RESP 16–20; TEMP 36.2–36.4; O2SAT 93–97; BMI 24.2; BMI 25.3
--- NOTE | 2024-08-06 20:21 | ED.GENADULT ---
HPI - General Adult General Date Seen: 08/06/24 Chief complaint: Arrhythmia/Palpitations Stated complaint: Afib Time Seen by Provider: 08/06/24 20:18 History of Present Illness HPI narrative: 69-year-old female presenting to the ER today for atrial fibrillation. She has a history of AFib with RVR, esophagitis, hypertension, alcohol use disorder, previous alcohol withdrawal, sensorineural hearing loss, BPPV. She was seen at the clinic in [place] and referred to the ER today. Per clinic notes...The patient was last evaluated on 06/28/2024, she was on Norvasc 2.5 mg daily, lisinopril 40 mg daily, and atenolol 25 mg daily for her hypertension, taking the medications consistently with blood pressure readings of 180/80, the Norvasc was increased from 2.5 mg daily to 10 mg daily, she remain on the lisinopril 40 mg daily, and atenolol 25 mg daily. The patient reports the Norvasc at 10 mg daily made her feel lightheaded dizzy so she cut the prescription down to 5 mg, felt much better. The patient reports she has had some episodic palpitations, and the past 1 and half months or so without any other symptomatology such as shortness of breath weakness or chest pain. The patient denies any chest pain, discomfort, presyncope, syncope or lower extremity edema. The patient does experience lightheadedness and dizziness, but has a history of vertigo. The patient does monitor her blood pressures at home, reporting they are higher in the morning than in the evening, and blood pressure readings of 183/99 on the 19 of July, and 152/84, recheck for 138/70. The patient follows a low-sodium diet. No history of sleep apnea. The patient reports she is not drinking nearly as much alcohol, less than a serving per day, 3 per week. Nonsmoker. Related Data Home Medications ?Medication ?Instructions ?Recorded ?Confirmed amlodipine 10 mg tablet (Norvasc) 5 mg PO QDAY 08/06/24 08/06/24 Previous Rx's ?Medication ?Instructions ?Recorded atenolol 25 mg tablet 25 mg PO QDAY #90 tabs 06/28/24 lisinopril 40 mg tablet 40 mg PO DAILY #90 tabs 06/28/24 Allergies Allergy/AdvReac Type Severity Reaction Status Date / Time No Known Drug Allergies Allergy Verified 08/06/24 20:10 [facility] Medical History (Updated 08/06/24 @ 22:36 by Renan Huffman MD) GI bleed ?K92.2 - Gastrointestinal hemorrhage, unspecified (ICD-10) Hypertension ?I10 - Essential (primary) hypertension (ICD-10) Surgical History (Updated 06/19/23 @ 09:22 by Marisol Garcia APRN, HEALTH AND SAFETY CONSULTANT) History of salpingo-oophorectomy ?Z90.79 - Acquired absence of other genital organ(s) (ICD-10) ?Z90.721 - Acquired absence of ovaries, unilateral (ICD-10) History of colon surgery ?Z98.890 - Other specified postprocedural states (ICD-10) S/P ORIF (open reduction internal fixation) fracture (07/20/22) ?Z98.890 - Other specified postprocedural states (ICD-10) ?Z87.81 - Personal history of (healed) traumatic fracture (ICD-10) History of ?Z98.891 - History of uterine scar from previous surgery (ICD-10) Family History (Updated 07/19/22 @ 13:29 by Marisol Garcia APRN, HEALTH AND SAFETY CONSULTANT) Brother Thyroid cancer Sister Diabetes Paternal Grandfather Lung cancer Social History (Reviewed 10/14/22 @ 10:57 by Lolly Hansen ~ [facility], [facility]) Narrative: . 1 child. Works at [employer]. 4 servings of alcohol per week. No illicit drug use. Non-smoker. Formal exercise. Smoking Status: Never smoker Do you use any of these nicotine containing products: None Second hand tobacco smoke exposure: Yes How often do you have a drink containing alcohol: 2-3 times a week Alcohol type: hard liquor How many standard drinks containing alcohol do you have on a typical day: 1 or 2 How often do you have six or more drinks on one occasion: Never AUDIT-C Alcohol total score: 3 Non-prescribed substance use: denies use Caffeine: No Are you using contraception or practicing any form of control: No Exam Narrative: Exam Narrative: Constitutional: Appears well-developed and well-nourished. Alert. Conversant. Non toxic. HENT: Head: Atraumatic. Nose: Nose normal. Mouth/Throat: Oral mucosa is clear and moist. no trismus. Pharynx normal. Tonsils symmetric. No tonsillar enlargement, erythema, or exudate. Eyes: Conjunctivae normal. EOM normal. Pupils equal, round, and reactive to light. No scleral icterus. Neck: Normal range of motion. Neck supple. No tracheal deviation present. No JVD Cardiovascular: Tachycardic and irregularly irregular rhythm.. No gallop. No friction rub. No murmur heard. Symmetric radial and PT artery pulses Pulmonary/Chest: Effort normal. No stridor. No respiratory distress. No wheezes. No rales. No rhonchi . No tenderness. Abdominal: Soft. No distension. No mass. No tenderness. No rebound. No guarding. Musculoskeletal: RUE: Normal range of motion. No tenderness. No deformity LUE: Normal range of motion. No tenderness. No deformity RLE: Normal range of motion. No edema. No tenderness. No deformity LLE: Normal range of motion. No edema. No tenderness. No deformity Lymph: No cervical adenopathy. Neurological: Alert and oriented to person, place, and time. Normal strength. CN II-VII intact. No sensory deficit. GCS eye subscore is 4. GCS verbal subscore is 5. GCS motor subscore is 6. Normal coordination Skin: Skin is warm and dry. No rash noted. No pallor. Normal capillary refill. Psychiatric: Normal mood. Normal affect. Const: Vital Signs, click to edit/add: Vital Signs - 24 hr 08/06/24 20:07 08/06/24 20:42 08/06/24 20:43 Temperature Pulse Rate 101 H 118 H Pulse Rate [Pulse Oximeter] 124 H Respiratory Rate 20 Blood Pressure 120/66 Blood Pressure [Ri t Upper Arm] 126/89 Pulse Oximetry 97 95 95 Oxygen Delivery Me thod Room Air 08/06/24 20:44 08/06/24 20:45 08/06/24 20:47 Temperature Pulse Rate 114 H 107 H 115 H Pulse Rate [Pulse Oximeter] Respiratory Rate Blood Pressure 99/75 121/71 Blood Pressure [Ri t Upper Arm] Pulse Oximetry 95 94 95 Oxygen Delivery Me thod 08/06/24 20:50 08/06/24 21:00 08/06/24 21:01 Temperature Pulse Rate 105 H 104 H Pulse Rate [Pulse Oximeter] Respiratory Rate Blood Pressure 117/83 Blood Pressure [Ri ght Upper Arm] Pulse Oximetry 95 93 95 Oxygen Delivery Me thod 08/06/24 21:02 08/06/24 21:10 08/06/24 21:15 Temperature Pulse Rate 107 H 128 H Pulse Rate [Pulse Oximeter] Respiratory Rate Blood Pressure Blood Pressure [Ri ght Upper Arm] Pulse Oximetry 95 97 97 Oxygen Delivery Me thod 08/06/24 21:16 08/06/24 21:20 08/06/24 21:30 Temperature Pulse Rate 108 H 90 Pulse Rate [Pulse Oximeter] Respiratory Rate Blood Pressure 113/94 H Blood Pressure [Ri ght Upper Arm] Pulse Oximetry 96 96 95 Oxygen Delivery Me thod 08/06/24 21:31 08/06/24 21:32 08/06/24 21:38 Temperature 97.1 F L Pulse Rate 100 114 H Pulse Rate [Pulse Oximeter] Respiratory Rate Blood Pressure 109/67 Blood Pressure [Ri ght Upper Arm] Pulse Oximetry 97 97 Oxygen Delivery Me thod 08/06/24 21:40 08/06/24 21:45 08/06/24 21:46 Temperature Pulse Rate 98 95 Pulse Rate [Pulse Oximeter] Respiratory Rate Blood Pressure 92/57 L Blood Pressure [Ri ght Upper Arm] Pulse Oximetry 95 95 94 Oxygen Delivery Me thod 08/06/24 21:47 08/06/24 21:50 08/06/24 21:54 Temperature Pulse Rate 98 98 Pulse Rate [Pulse Oximeter] Respiratory Rate Blood Pressure 110/57 L Blood Pressure [Ri ght Upper Arm] Pulse Oximetry 95 95 96 Oxygen Delivery Me thod 08/06/24 22:00 08/06/24 22:02 08/06/24 22:10 Temperature Pulse Rate Pulse Rate [Pulse Oximeter] Respiratory Rate Blood Pressure Blood Pressure [Ri ght Upper Arm] Pulse Oximetry 95 95 97 Oxygen Delivery Me thod Course Course ED Course: Patient arrived in the ER and was confirmed to be in AFib with RVR on EKG and monitoring specialist. Heart rate ranging 140s to 150s. Blood pressure stable. She was symptomatic with palpitations but not acutely altered her having severe chest pain requiring immediate cardioversion. Since she actually feels intermittent palpitations that are likely AFib about every week for the past several weeks, this is not truly a new onset AFib. She is not currently anticoagulated. Therefore risk of stroke associated with cardioversion would outweigh the benefit. Will pursue rate control. Diltiazem 10 mg IV. Heart rate came down initially to the 110s-120s but then began to drift back up Diltiazem 10 mg IV-heart rate came down to the 110s. Briefly down to the 90s and then came back up to the 120s. Remains symptomatic blood pressure normal. Diltiazem 20 mg IV. Heart rate came down to the 100-110. Not consistently under control. Still symptomatic with palpitations. Will start diltiazem drip given persistent tachycardia. Vital Signs Vital signs: Initial Vital Signs Pulse Rate 124 H 08/06/24 20:07 Pulse Rhythm Irregular 08/06/24 20:07 Respiratory Rate 20 08/06/24 20:07 Blood Pressure 126/89 08/06/24 20:07 Blood Pressure Mean 101 08/06/24 20:07 Pulse Oximetry 97 08/06/24 20:07 Oxygen Delivery Method Room Air 08/06/24 20:07 Vital Signs Pulse Rate 124 H 08/06/24 20:07 Respiratory Rate 20 08/06/24 20:07 Blood Pressure 126/89 08/06/24 20:07 Pulse Oximetry 97 08/06/24 20:07 Oxygen Delivery Method Room Air 08/06/24 20:07 Temperature 97.1 F L 08/06/24 21:38 Pulse Rate 98 08/06/24 21:54 Respiratory Rate 20 08/06/24 20:07 Blood Pressure 110/57 L 08/06/24 21:54 Pulse Oximetry 97 08/06/24 22:10 Oxygen Delivery Method Room Air 08/06/24 20:07 Medications Administered Medications: Generic Name Dose Route Start Last Admin Trade Name Freq PRN Reason Stop Dose Admin Diltiazem HCl 125 mg/ Sodium 125 mls @ 5 mls/hr 08/06/24 21:35 08/06/24 22:34 Chloride IVPB 5 mls/hr .TITRATE HANNAH Administration Protocol Discontinued Medications Generic Name Dose Route Start Last Admin Trade Name Freq PRN Reason Stop Dose Admin Diltiazem HCl 10 mg 08/06/24 20:43 08/06/24 21:14 Diltiazem 5 Mg/Ml Inj IVP 08/06/24 20:44 10 mg ONCE ONE Administration Diltiazem HCl 10 mg 08/06/24 20:54 08/06/24 21:11 Diltiazem 5 Mg/Ml Inj IVP 08/06/24 20:55 10 mg ONCE ONE Administration Diltiazem HCl 20 mg 08/06/24 21:31 08/06/24 21:37 Diltiazem 5 Mg/Ml Inj IVP 08/06/24 21:32 20 mg ONCE ONE Administration Sodium Chloride 1,000 mls @ 1,000 mls/hr 08/06/24 20:45 08/06/24 21:58 0.9 % Sodium Chloride 1000 Ml IV 08/06/24 21:44 Infused .Q1H HANNAH Infusion Medical Decision Making MDM Narrative Medical decision making narrative: This patent presents for evaluation of palpitations, with very clear onset at her clinic this afternoon.. This is consistent with atrial fibrillation with rapid ventricular response. She does have a known history of paroxysmal atrial fibrillation and reports that she has brief episodes of palpitations fairly often at home, perhaps every week or so. She has never had an episode of palpitations that was so fast and so persistent as she was feeling today at her clinic. She is in AFib with RVR but is not a good candidate for cardioversion given episodes ongoing off and on much longer than 48 hours. Risk for embolic event. She is not having any ischemic chest pain. EKG shows AFib with no definite ischemia. Troponin normal. No recent lower extremity edema, travel, or other risk factors for PE, no chest or back pain to suggest dissection, drug ingestion, acute electrolyte imbalance, etc. she has a history of alcohol use disorder. She is clinically sober not displaying any signs of alcohol withdrawal. She denies any recent heavy alcohol use. Labs with question. Given persistence of tachycardia despite boluses of IV diltiazem will start diltiazem drip. Patient will be admitted for rate control. She is not currently on stroke prophylaxis because she apparently had some unexplained GI bleeding a couple of years ago and was told by her doctors at [facility] not to go on blood thinners. Will have to balance the risk of stroke from AFib versus the potential risk of GI bleeding from blood thinners. She has no recent symptoms of GI bleeding and hemoglobin is 12.5 today. Lab Data Labs: Lab Results 08/06/24 08/06/24 Range/Units 20:43 21:30 WBC 6.22 (4.50-11.00) K/uL RBC 4.12 (4.00-5.20) m/uL Hgb 12.5 (12.0-16.0) gm/dL Hct 36.9 (33.0-51.0) % MCV 90 (80-100) fL MCH 30 (26-34) pg MCHC 34 (32-36) gm/dL RDW Coeff of [place] 11.8 (11.5-15.5) % Plt Count 214 (140-440) K/uL Neut % (Auto) 68.7 (42.0-72.0) % Lymph % (Auto) 18.5 L (20-44) % [place] % (Auto) 11.4 H (0.0-11.0) % Eos % (Auto) 1.0 (0.0-7.0) % Baso % (Auto) 0.2 (0.0-3.0) % Neut # (Auto) 4.28 (1.7-7.0) K/uL Lymph # (Auto) 1.20 (0.90-2.90) K/uL [place] # (Auto) 0.70 (0.00-0.90) K/UL Eos # (Auto) 0.06 (0.00-0.50) K/uL Baso # (Auto) 0.01 (0.00-0.30) K/uL Abs Immat Gran (auto) 0.01 (0.00-0.30) K/uL Imm/Tot Granulo (auto) 0.2 % Sodium 134 L (135-149) mmol/L Potassium 3.7 (3.6-5.1) mmol/L Chloride 104 (96-114) mmol/L Carbon Dioxide 23 (20-32) mmol/L Anion Gap 7 (7-15) mEq/L BUN 12 (7-30) mg/dL Creatinine 0.6 (0.5-1.5) mg/dL Estimated Creat Clear 50.41 Estimated GFR 98 ml/min Glucose 95 (60-115) mg/dL Calcium 8.9 (8.4-10.6) mg/dL Troponin I < 0.01 L (0.01-0.04) ng/mL TSH 1.860 (0.270-4.200) uIU/mL POC Troponin I 0.00 L (0.01-0.04) ng/ml ECG Data Attestation: I personally reviewed and interpreted this ECG as follows: Interpretation: Atrial fibrillation with rapid ventricular response Rate: 150 IN: Not applicable QRS axis: Normal axis ST segment/T wave: no ST segment elevation or depression QTc: 486 Discharge Plan Discharge Clinical Impression: Atrial fibrillation with rapid ventricular response Patient Disposition: Admitted As Observation
[2024-08-06] MEDS: dilTIAZem 5 MG/ML inj 10 MG IVP ×2 (21:11→21:14)
[2024-08-06] MEDS: 0.9 % SODIUM CHLORIDE 1000 ml 1,000 ML IV (21:13)
[2024-08-06] MEDS: dilTIAZem 5 MG/ML inj 20 MG IVP (21:37)
[2024-08-06 21:45] LABS: Basophils Absolute Auto 0.01 K/uL (0.00-0.30); Basophils Percent Auto 0.2 % (0.0-3.0); Eosinophils Absolute Auto 0.06 K/uL (0.00-0.50); Hematocrit 36.9 % (33.0-51.0); Hemoglobin* 12.5 gm/dL (12.0-16.0); Immature Granulocytes Abs Auto 0.01 K/uL (0.00-0.30); Immature Granulocytes Pct Auto 0.2 %; Lymphocytes Percent Auto 18.5 % (20-44); Mean Corpuscular HGB Conc 34 gm/dL (32-36); Mean Corpuscular Hemoglobin 30 pg (26-34); Mean Corpuscular Volume 90 fL (80-100); Monocytes Percent Auto 11.4 % (0.0-11.0); Neutrophils Absolute Auto 4.28 K/uL (1.7-7.0); Neutrophils Percent Auto 68.7 % (42.0-72.0); Platelet Count* 214 K/uL (140-440); RDW Coefficient of Variation % 11.8 % (11.5-15.5); Red Blood Count 4.12 m/uL (4.00-5.20); White Blood Count* 6.22 K/uL (4.50-11.00)
[2024-08-06 21:52] LABS: Slide Review Reflex No
[2024-08-06 21:59] LABS: Chloride* 104 mmol/L (96-114); Potassium* 3.7 mmol/L (3.6-5.1); Sodium* 134 mmol/L (135-149)
[2024-08-06 22:02] LABS: Anion Gap 7 mEq/L (7-15); Carbon Dioxide* 23 mmol/L (20-32); Creatinine* 0.6 mg/dL (0.5-1.5); Est. Creatinine Clearance* 50.41; Estimated Glomerular Filt Rate 98 ml/min
[2024-08-06 22:03] LABS: Blood Urea Nitrogen* 12 mg/dL (7-30); Calcium* 8.9 mg/dL (8.4-10.6); Glucose* 95 mg/dL (60-115)
[2024-08-06 22:27] LABS: Troponin I* < 0.01 ng/mL (0.01-0.04)
[2024-08-06] MEDS: dilTIAZem HCL 125 MG in 0.9 % SODIUM CHLORIDE 100 ml 100 ML IVPB (22:34)
[2024-08-07] VITALS (49 sets, daily range): BP systolic 100–150; BP diastolic 50–130; PULSE 47–129; RESP 14–16; TEMP 36.2–36.6; O2SAT 94–99
--- NOTE | 2024-08-07 00:36 | PM.IMHP1 ---
Hospitalist- H&P: LISS History of Present Illness Date Seen: 08/07/24 Chief complaint: Afib Narrative: Meghana Jon is a 69 year old female with history of atrial fibrillation, alcohol abuse, hypertension, colon cancer treated with resection who went to the clinic today for routine follow-up for hypertension when they noticed her heart rate was elevated and she started to feel palpitations. She had a small headache, but that is gone. She denies any vision changes, lightheadedness, dizziness, chest pain, or shortness of breath. She has had atrial fibrillation with RVR in the past, but notes that she has never felt this symptomatic with it. She think she went into it while in clinic. In 2022 she was diagnosed with colon cancer and had it resected. She was not interested in chemotherapy and so had no chemotherapy or radiation. Later that year she had significant GI bleeding with bright red blood per rectum and a very low hemoglobin for which she was given transfusions at [facility]. Due to the severity of this GI bleed and nothing having shown up on the colonoscopy or EGD, it was determined that it was too risky to put her on anticoagulation for atrial fibrillation, so she has not been on any. She has not had any GI bleeding since then. Review of Systems Status of ROS: Reports: 10 or more systems reviewed and unremarkable except as noted in History and below [facility] Medical History (Updated 08/07/24 @ 01:16 by Wendi Biggs MD) Alcohol abuse ?F10.10 - Alcohol abuse, uncomplicated (ICD-10) Hyponatremia ?E87.1 - Hypo-osmolality and hyponatremia (ICD-10) Alcohol withdrawal seizure ?F10.939 - Alcohol use, unspecified with withdrawal, unspecified (ICD-10) ?R56.9 - Unspecified convulsions (ICD-10) Alcohol withdrawal delirium ?F10.931 - Alcohol use, unspecified with withdrawal delirium (ICD-10) Diverticular disease ?K57.90 - Diverticulosis of intestine, part unspecified, without perforation or abscess without bleeding (ICD-10) Osteopenia ?M85.80 - Other specified disorders of bone density and structure, unspecified site (ICD-10) Benign positional vertigo ?H81.10 - Benign paroxysmal vertigo, unspecified ear (ICD-10) SNHL (sensorineural hearing loss) ?H90.5 - Unspecified sensorineural hearing loss (ICD-10) Anemia ?D64.9 - Anemia, unspecified (ICD-10) Osteoarthritis ?M19.90 - Unspecified osteoarthritis, unspecified site (ICD-10) Urinary incontinence ?R32 - Unspecified urinary incontinence (ICD-10) Colon cancer ?C18.9 - Malignant neoplasm of colon, unspecified (ICD-10) Esophagitis ?K20.90 - Esophagitis, unspecified without bleeding (ICD-10) Hiatal hernia ?K44.9 - Diaphragmatic hernia without obstruction or gangrene (ICD-10) GI bleed ?K92.2 - Gastrointestinal hemorrhage, unspecified (ICD-10) Hypertension ?I10 - Essential (primary) hypertension (ICD-10) Surgical History History of salpingo-oophorectomy ?Z90.79 - Acquired absence of other genital organ(s) (ICD-10) ?Z90.721 - Acquired absence of ovaries, unilateral (ICD-10) History of colon surgery ?Z98.890 - Other specified postprocedural states (ICD-10) S/P ORIF (open reduction internal fixation) fracture (07/20/22) ?Z98.890 - Other specified postprocedural states (ICD-10) ?Z87.81 - Personal history of (healed) traumatic fracture (ICD-10) History of ?Z98.891 - History of uterine scar from previous surgery (ICD-10) Family History Brother Thyroid cancer Sister Diabetes Paternal Grandfather Lung cancer Social History (Updated 08/07/24 @ 00:38 by Wendi Biggs MD) Narrative: . 1 child. Works at [employer]. 5-6 servings of alcohol per week. No illicit drug use. Non-smoker. Formal exercise. What is your current living situation?: I presently have a place to live Problems where you live: no known problems Problems where you live details: NA In the past 12 months, utilities in danger of being shut off: no In past 12 months, lack of transportation kept you from medical appts, meetings, work, or getting things needed for daily living: no In the past 12 mos, have been you worried that your food would run out before you had money to buy more?: never true In the past 12 mos, the food you bought just didn't last and you didn't have money to buy more?: never true Highest level of school completed/degree received: some college, no degree Smoking Status: Never smoker Do you use any of these nicotine containing products: None Second hand tobacco smoke exposure: Yes How often do you have a drink containing alcohol: 2-3 times a week Alcohol type: hard liquor How many standard drinks containing alcohol do you have on a typical day: 1 or 2 How often do you have six or more drinks on one occasion: Never AUDIT-C Alcohol total score: 3 Non-prescribed substance use: denies use Caffeine: No How often does anyone, including family, friends and others, physically hurt you: never How often does anyone, including family, friends and others, insult or talk down to you: never How often does anyone, including family, friends and others, threaten you with harm: never How often does anyone, including family, friends and others, scream or curse at you: never Are you using contraception or practicing any form of control: No Meds Home Medications and Allergies Home Medications ?Medication ?Instructions ?Recorded ?Confirmed ?Type amlodipine 10 mg tablet (Norvasc) 5 mg PO QDAY 08/06/24 08/06/24 History Allergies Allergy/AdvReac Type Severity Reaction Status Date / Time No Known Drug Allergies Allergy Verified 08/06/24 20:10 Exam Narrative: Exam Narrative: General: No acute distress. Awake alert oriented x3. HEENT: Normocephalic atraumatic, pupils equally round and reactive to light and accommodation. Oropharynx clear. Mucous membranes are moist. No cervical lymphadenopathy, thyromegaly or carotid bruits. No JVD. Cardiovascular: Irregularly irregular, tachycardic. No murmurs, gallops, or rubs. Chest: No increased work of breathing. Clear to auscultation bilaterally. No crackles or wheezes. Abdomen: Bowel sounds present. Soft, nondistended, nontender. No hepatosplenomegaly or masses. Extremities: No edema, no cyanosis or clubbing. Skin: No jaundice, no pallor, no rashes. Const: Vital Signs, click to edit/add: Vital Signs - 24 hr 08/06/24 20:07 08/06/24 20:42 08/06/24 20:43 Temperature Pulse Rate 101 H 118 H Pulse Rate [Left R adial] Pulse Rate [Pulse Oximeter] 124 H Respiratory Rate 20 Blood Pressure 120/66 Blood Pressure [Ri ght Arm] Blood Pressure [Ri ght Upper Arm] 126/89 Pulse Oximetry 97 95 95 Oxygen Delivery Me thod Room Air 08/06/24 20:44 08/06/24 20:45 08/06/24 20:47 Temperature Pulse Rate 114 H 107 H 115 H Pulse Rate [Left R adial] Pulse Rate [Pulse Oximeter] Respiratory Rate Blood Pressure 99/75 121/71 Blood Pressure [Ri ght Arm] Blood Pressure [Ri ght Upper Arm] Pulse Oximetry 95 94 95 Oxygen Delivery Me thod 08/06/24 20:50 08/06/24 21:00 08/06/24 21:01 Temperature Pulse Rate 105 H 104 H Pulse Rate [Left R adial] Pulse Rate [Pulse Oximeter] Respiratory Rate Blood Pressure 117/83 Blood Pressure [Ri ght Arm] Blood Pressure [Ri ght Upper Arm] Pulse Oximetry 95 93 95 Oxygen Delivery Me thod 08/06/24 21:02 08/06/24 21:10 08/06/24 21:15 Temperature Pulse Rate 107 H 128 H Pulse Rate [Left R adial] Pulse Rate [Pulse Oximeter] Respiratory Rate Blood Pressure Blood Pressure [Ri ght Arm] Blood Pressure [Ri ght Upper Arm] Pulse Oximetry 95 97 97 Oxygen Delivery Me thod 08/06/24 21:16 08/06/24 21:20 08/06/24 21:30 Temperature Pulse Rate 108 H 90 Pulse Rate [Left R adial] Pulse Rate [Pulse Oximeter] Respiratory Rate Blood Pressure 113/94 H Blood Pressure [Ri ght Arm] Blood Pressure [Ri ght Upper Arm] Pulse Oximetry 96 96 95 Oxygen Delivery Me thod 08/06/24 21:31 08/06/24 21:32 08/06/24 21:38 Temperature 97.1 F L Pulse Rate 100 114 H Pulse Rate [Left R adial] Pulse Rate [Pulse Oximeter] Respiratory Rate Blood Pressure 109/67 Blood Pressure [Ri ght Arm] Blood Pressure [Ri ght Upper Arm] Pulse Oximetry 97 97 Oxygen Delivery Me thod 08/06/24 21:40 08/06/24 21:45 08/06/24 21:46 Temperature Pulse Rate 98 95 Pulse Rate [Left R adial] Pulse Rate [Pulse Oximeter] Respiratory Rate Blood Pressure 92/57 L Blood Pressure [Ri ght Arm] Blood Pressure [Ri ght Upper Arm] Pulse Oximetry 95 95 94 Oxygen Delivery Me thod 08/06/24 21:47 08/06/24 21:50 08/06/24 21:54 Temperature Pulse Rate 98 98 Pulse Rate [Left R adial] Pulse Rate [Pulse Oximeter] Respiratory Rate Blood Pressure 110/57 L Blood Pressure [Ri ght Arm] Blood Pressure [Ri ght Upper Arm] Pulse Oximetry 95 95 96 Oxygen Delivery Me thod 08/06/24 22:00 08/06/24 22:02 08/06/24 22:10 Temperature Pulse Rate Pulse Rate [Left R adial] Pulse Rate [Pulse Oximeter] Respiratory Rate Blood Pressure Blood Pressure [Ri ght Arm] Blood Pressure [Ri ght Upper Arm] Pulse Oximetry 95 95 97 Oxygen Delivery Ms thod 08/06/24 23:46 08/07/24 00:12 Temperature 97.6 F Pulse Rate Pulse Rate [Left R adial] 106 H Pulse Rate [Pulse Oximeter] Respiratory Rate 16 16 Blood Pressure Blood Pressure [Ri ght Arm] 132/85 Blood Pressure [Ri ght Upper Arm] Pulse Oximetry 97 97 Oxygen Delivery Me thod Room Air Room Air Hospitalist - H&P: Result Labs Labs: Short CBC 08/06/24 Range/Units 21:30 WBC 6.22 (4.50-11.00) K/uL Hgb 12.5 (12.0-16.0) gm/dL Hct 36.9 (33.0-51.0) % Plt Count 214 (140-440) K/uL BMP 08/06/24 21:30 Sodium 134 L Potassium 3.7 Chloride 104 Carbon Dioxide 23 BUN 12 Creatinine 0.6 Glucose 95 Calcium 8.9 Cardiac Enzymes 08/06/24 Range/Units 21:30 Troponin I < 0.01 L (0.01-0.04) ng/mL 08/06/2024 EKG: Atrial fibrillation with rapid ventricular response with premature aberrantly conducted complexes, 138 beats per minute, marked ST abnormality, possible inferior subendocardial injury. 08/06/2024 EKG: Atrial fibrillation with rapid ventricular response, 150 beats per minute, ST and T-wave abnormality, consider inferior ischemia. Assessment and Plan Assessment and plan (1) Atrial fibrillation with rapid ventricular response: Problem comment: - Admit to CCU for diltiazem drip. Hold home antihypertensives, with the exception of atenolol, for now. - Discussed anticoagulation with patient. Will hold off due to history of significant GI bleeding of unknown etiology and h/o colon cancer. Status: Acute (2) Colon cancer: Problem comment: Stage II, under the care of [facility] Status: Chronic (3) Alcohol abuse: Problem comment: - Discussed with patient how alcohol use can contribute to atrial fibrillation and recommended abstinence - Monitor for withdrawal, may need CIWA Status: Chronic (4) Hypertension: Status: Chronic
[2024-08-07] MEDS: ACETAMINOPHEN 325 MG TABLET 650 MG PO ×4 (03:47→22:42)
--- NOTE | 2024-08-07 05:30 | PC.NURSE ---
Pt was admitted to floor with Afib/RVR. Dilt ggt was started @10ml/hr. Was changed to 15ml/hr. HR remained irregular all night. Started evening with HR in 120s and later slowed to 90s but would continue to jump in to the 120s. BPs were stable all night. Pt Stable on feet and up to BR voiding.
[2024-08-07] MEDS: dilTIAZem HCL 125 MG in 0.9 % SODIUM CHLORIDE 100 ml 100 ML 15 MG IVPB (07:39)
[2024-08-07] MEDS: atenoloL 25 MG TABLET PO (08:52)
--- NOTE | 2024-08-07 15:14 | P.IMPN_ITS ---
Progress Note: A&P Assessment and plan (1) Atrial fibrillation with rapid ventricular response: Problem details: - S/P diltiazem drip. Hold home antihypertensives, with the exception of atenolol, for now. - Discussed anticoagulation with patient. Will hold off due to history of significant GI bleeding of unknown etiology and h/o colon cancer. - Converted to sinus rhythm 2/5th AM Status: Resolved (2) Colon cancer: Problem details: Stage II, under the care of [place] Status: Chronic (3) Alcohol abuse: Problem details: - Discussed with patient how alcohol use can contribute to atrial fibrillation and recommended abstinence - Monitor for withdrawal, may need CIWA Status: Chronic (4) Hypertension: Status: Chronic Time Spent With Patient Total time spent: Today I spent 50 minutes seeing the patient, reviewing Expanse and EPIC notes/diagnostics, discussing the care plan with our care time that includes social work, PT/OT, pharmacy, RT, snf and documenting my impressions and plan in the medical record. Subjective Date Seen: 08/07/24 Interval history: Pt seen and examined at bedside. Pt states that she felt much better when her rhythm converted to sinus around 10 am. No CP or SOB. Exam Narrative: Exam Narrative: Physical exam GENERAL: Comfortable, no acute distress. HEAD AND NECK: Atraumatic, normocephalic CARDIOVASCULAR: Sinus bradycardia. Normal S1, S2. No murmurs. RESPIRATORY: Clear to auscultation B/L. Good air entry B/L. No wheezes or rhonchi. GASTROINTESTINAL: Not distended, not tender to palpation. NEUROLOGY: Alert, awake, oriented X 3. Normal speech PSYCH: Normal mood, normal affect. Const: Vital Signs, click to edit/add: Vital Signs - 24 hr 08/06/24 20:07 08/06/24 20:42 08/06/24 20:43 Temperature Pulse Rate 101 H 118 H Pulse Rate [Left R adial] Pulse Rate [Pulse Oximeter] 124 H Respiratory Rate 20 Blood Pressure 120/66 Blood Pressure [Ri ght Arm] Blood Pressure [Ri ght Upper Arm] 126/89 Pulse Oximetry 97 95 95 Oxygen Delivery Me thod Room Air 08/06/24 20:44 08/06/24 20:45 08/06/24 20:47 Temperature Pulse Rate 114 H 107 H 115 H Pulse Rate [Left R adial] Pulse Rate [Pulse Oximeter] Respiratory Rate Blood Pressure 99/75 121/71 Blood Pressure [Ri ght Arm] Blood Pressure [Ri ght Upper Arm] Pulse Oximetry 95 94 95 Oxygen Delivery Ma thod 08/06/24 20:50 08/06/24 21:00 08/06/24 21:01 Temperature Pulse Rate 105 H 104 H Pulse Rate [Left R adial] Pulse Rate [Pulse Oximeter] Respiratory Rate Blood Pressure 117/83 Blood Pressure [Ri ght Arm] Blood Pressure [Ri ght Upper Arm] Pulse Oximetry 95 93 95 Oxygen Delivery Ma thod 08/06/24 21:02 08/06/24 21:10 08/06/24 21:15 Temperature Pulse Rate 107 H 128 H Pulse Rate [Left R adial] Pulse Rate [Pulse Oximeter] Respiratory Rate Blood Pressure Blood Pressure [Ri ght Arm] Blood Pressure [Ri ght Upper Arm] Pulse Oximetry 95 97 97 Oxygen Delivery Ma thod 08/06/24 21:16 08/06/24 21:20 08/06/24 21:30 Temperature Pulse Rate 108 H 90 Pulse Rate [Left R adial] Pulse Rate [Pulse Oximeter] Respiratory Rate Blood Pressure 113/94 H Blood Pressure [Ri ght Arm] Blood Pressure [Ri ght Upper Arm] Pulse Oximetry 96 96 95 Oxygen Delivery Ma thod 08/06/24 21:31 08/06/24 21:32 08/06/24 21:38 Temperature 97.1 F L Pulse Rate 100 114 H Pulse Rate [Left R adial] Pulse Rate [Pulse Oximeter] Respiratory Rate Blood Pressure 109/67 Blood Pressure [Ri ght Arm] Blood Pressure [Ri ght Upper Arm] Pulse Oximetry 97 97 Oxygen Delivery Ma thod 08/06/24 21:40 08/06/24 21:45 08/06/24 21:46 Temperature Pulse Rate 98 95 Pulse Rate [Left R adial] Pulse Rate [Pulse Oximeter] Respiratory Rate Blood Pressure 92/57 L Blood Pressure [Ri ght Arm] Blood Pressure [Ri ght Upper Arm] Pulse Oximetry 95 95 94 Oxygen Delivery Ma thod 08/06/24 21:47 08/06/24 21:50 08/06/24 21:54 Temperature Pulse Rate 98 98 Pulse Rate [Left R adial] Pulse Rate [Pulse Oximeter] Respiratory Rate Blood Pressure 110/57 L Blood Pressure [Ri ght Arm] Blood Pressure [Ri ght Upper Arm] Pulse Oximetry 95 95 96 Oxygen Delivery Me thod 08/06/24 22:00 08/06/24 22:02 08/06/24 22:10 Temperature Pulse Rate Pulse Rate [Left R adial] Pulse Rate [Pulse Oximeter] Respiratory Rate Blood Pressure Blood Pressure [Ri ght Arm] Blood Pressure [Ri ght Upper Arm] Pulse Oximetry 95 95 97 Oxygen Delivery Ma thod 08/06/24 23:46 08/07/24 00:12 08/07/24 00:30 Temperature 97.6 F Pulse Rate Pulse Rate [Left R adial] 106 H Pulse Rate [Pulse Oximeter] Respiratory Rate 16 16 Blood Pressure Blood Pressure [Ri ght Arm] 132/85 145/130 H Blood Pressure [Ri ght Upper Arm] Pulse Oximetry 97 97 [facility] 08/07/24 00:35 08/07/24 00:41 08/07/24 00:47 Temperature Pulse Rate Pulse Rate [Left R adial] Pulse Rate [Pulse Oximeter] Respiratory Rate Blood Pressure Blood Pressure [Ri ght Arm] 110/79 131/64 119/75 Blood Pressure [Ri ght Upper Arm] Pulse Oximetry Oxygen Delivery Ma thod 08/07/24 00:50 08/07/24 00:55 08/07/24 01:00 Temperature Pulse Rate Pulse Rate [Left R adial] 110 H Pulse Rate [Pulse Oximeter] Respiratory Rate Blood Pressure Blood Pressure [Ri ght Arm] 118/72 123/77 115/78 Blood Pressure [Ri ght Upper Arm] Pulse Oximetry Oxygen Delivery Ma thod 08/07/24 01:15 08/07/24 01:34 08/07/24 01:51 Temperature 97.5 F L Pulse Rate Pulse Rate [Left R adial] 113 H 116 H 122 H Pulse Rate [Pulse Oximeter] Respiratory Rate 16 Blood Pressure Blood Pressure [Ri ght Arm] 128/70 127/93 H 128/80 Blood Pressure [Ri ght Upper Arm] Pulse Oximetry 96 [facility] 08/07/24 01:56 08/07/24 02:01 08/07/24 02:07 Temperature Pulse Rate Pulse Rate [Left R adial] 129 H 129 H 113 H Pulse Rate [Pulse Oximeter] Respiratory Rate Blood Pressure Blood Pressure [Ri ght Arm] 141/82 H 120/95 H 135/85 Blood Pressure [Ri ght Upper Arm] Pulse Oximetry [facility] 08/07/24 02:12 08/07/24 02:16 08/07/24 02:31 Temperature Pulse Rate Pulse Rate [Left R adial] 111 H 113 H 111 H Pulse Rate [Pulse Oximeter] Respiratory Rate Blood Pressure Blood Pressure [Ri ght Arm] 118/93 H 109/85 108/79 Blood Pressure [Ri ght Upper Arm] Pulse Oximetry [facility] 08/07/24 02:46 08/07/24 03:01 08/07/24 03:17 Temperature Pulse Rate Pulse Rate [Left R adial] 104 H 118 H 116 H Pulse Rate [Pulse Oximeter] Respiratory Rate Blood Pressure Blood Pressure [Ri ght Arm] 122/77 129/86 110/84 Blood Pressure [Ri ght Upper Arm] Pulse Oximetry [facility] 08/07/24 03:30 08/07/24 03:47 08/07/24 03:50 Temperature 97.5 F L 97.8 F Pulse Rate Pulse Rate [Left R adial] 116 H 116 H Pulse Rate [Pulse Oximeter] Respiratory Rate 16 Blood Pressure Blood Pressure [Ri ght Arm] 125/73 150/82 H Blood Pressure [Ri ght Upper Arm] Pulse Oximetry 99 [facility] 08/07/24 04:05 08/07/24 04:18 08/07/24 04:29 Temperature Pulse Rate 97 Pulse Rate [Left R adial] 104 H 104 H Pulse Rate [Pulse Oximeter] Respiratory Rate Blood Pressure Blood Pressure [Ri ght Arm] 122/63 113/80 Blood Pressure [Ri ght Upper Arm] Pulse Oximetry [facility] 08/07/24 04:33 08/07/24 04:45 08/07/24 05:01 Temperature Pulse Rate Pulse Rate [Left R adial] 109 H 116 H 113 H Pulse Rate [Pulse Oximeter] Respiratory Rate Blood Pressure Blood Pressure [Ri ght Arm] 100/67 110/73 101/69 Blood Pressure [Ri ght Upper Arm] Pulse Oximetry [facility] 08/07/24 05:26 08/07/24 05:39 08/07/24 06:01 Temperature 97.8 F Pulse Rate 95 Pulse Rate [Left R adial] 122 H 105 H Pulse Rate [Pulse Oximeter] Respiratory Rate 16 Blood Pressure Blood Pressure [Ri ght Arm] 113/65 127/71 Blood Pressure [Ri ght Upper Arm] Pulse Oximetry 94 Oxygen Delivery Ma thod Room Air 08/07/24 06:50 08/07/24 07:30 08/07/24 07:57 Temperature 97.4 F L Pulse Rate 87 Pulse Rate [Left R adial] 105 H 94 Pulse Rate [Pulse Oximeter] Respiratory Rate 16 16 Blood Pressure Blood Pressure [Ri ght Arm] 120/72 Blood Pressure [Ri ght Upper Arm] Pulse Oximetry 94 [facility] 08/07/24 08:53 08/07/24 10:27 08/07/24 11:31 Temperature Pulse Rate 47 L Pulse Rate [Left R adial] 58 L 57 L Pulse Rate [Pulse Oximeter] Respiratory Rate 16 16 Blood Pressure Blood Pressure [Ri ght Arm] 113/67 107/50 L Blood Pressure [Ri ght Upper Arm] Pulse Oximetry 94 96 [facility] Room Air 08/07/24 12:04 Temperature Pulse Rate Pulse Rate [Left R adial] 48 L Pulse Rate [Pulse Oximeter] Respiratory Rate 14 Blood Pressure Blood Pressure [Ri ght Arm] 119/64 Blood Pressure [Ri ght Upper Arm] Pulse Oximetry 95 [facility] Labs Labs: Laboratory Results - last 24 hr 08/06/24 08/06/24 20:43 21:30 WBC 6.22 RBC 4.12 Hgb 12.5 Hct 36.9 MCV 90 MCH 30 MCHC 34 RDW Coeff of [place] 11.8 Plt Count 214 Neut % (Auto) 68.7 Lymph % (Auto) 18.5 L [place] % (Auto) 11.4 H Eos % (Auto) 1.0 Baso % (Auto) 0.2 Neut # (Auto) 4.28 Lymph # (Auto) 1.20 [place] # (Auto) 0.70 Eos # (Auto) 0.06 Baso # (Auto) 0.01 Abs Immat Gran (auto) 0.01 Imm/Tot Granulo (auto) 0.2 Sodium 134 L Potassium 3.7 Chloride 104 Carbon Dioxide 23 Anion Gap 7 BUN 12 Creatinine 0.6 Estimated Creat Clear 50.41 Estimated GFR 98 Glucose 95 Calcium 8.9 Troponin I < 0.01 L TSH 1.860 POC Troponin I 0.00 L ECG Attestation: I personally reviewed and interpreted this ECG as follows: Prior ECG tracings: available for review Interpretation: Normal sinus rhythm @ 2/5th AM
--- NOTE | 2024-08-07 18:35 | PC.NURSE ---
end of shift. pt has been very pleasant. she converted to NST around 1045. Md was aware. EKG was done. drip was turned down and later stopped. she is eating, drinking and voiding. SL is patent. she was made floor care
[2024-08-07] MEDS: MELATONIN 3 MG TABLET PO (20:35)
[2024-08-07] MEDS: SODIUM CHLORIDE 0.9 % (FLUSH) 10 ML SYRINGE 5 ML IVF (20:35)
[2024-08-07] MEDS: dilTIAZem 30 MG TABLET PO (22:42)
[2024-08-08 01:56] VITALS: BP 144/73; PULSE 60; RESP 16; TEMP 36.4; O2SAT 95
[2024-08-08 02:40] VITALS: PULSE 61
--- NOTE | 2024-08-08 05:53 | PC.NURSE ---
Pt was much more relaxed this night compared to last night. HR 50s-60s all night with regular rhythm. Pt up IND, pleasant and cooperative. BP unremarkable.
[2024-08-08 07:05] LABS: Chloride* 106 mmol/L (96-114); Sodium* 137 mmol/L (135-149)
[2024-08-08 07:07] LABS: Creatinine* 0.7 mg/dL (0.5-1.5); Est. Creatinine Clearance* 50.41; Estimated Glomerular Filt Rate 94 ml/min
[2024-08-08 07:08] LABS: Anion Gap 8 mEq/L (7-15); Blood Urea Nitrogen* 17 mg/dL (7-30); Calcium* 8.8 mg/dL (8.4-10.6); Carbon Dioxide* 23 mmol/L (20-32); Glucose* 107 mg/dL (60-115); Magnesium* 1.8 mg/dL (1.5-2.6)
[2024-08-08 07:19] VITALS: PULSE 59
[2024-08-08 07:30] VITALS: PULSE 64; RESP 18
[2024-08-08 07:45] VITALS: BP 170/76; PULSE 64; RESP 18; TEMP 36.4; O2SAT 98
[2024-08-08] MEDS: ACETAMINOPHEN 325 MG TABLET 650 MG PO (08:59)
[2024-08-08] MEDS: atenoloL 25 MG TABLET PO (08:59)
--- NOTE | 2024-08-08 10:27 | PM.DS1 ---
DS: Providers Provider Date Seen: 08/08/24 Date of admission: 08/07/24 01:03 Primary care physician: Marisol Garcia APRN, [facility] Admitting Clinician: Wendi Biggs MD Attending Physician on discharge: EDWIGE WALTER MD DS: Diagnosis Discharge Diagnosis (1) Atrial fibrillation with rapid ventricular response: Status: Resolved Problem details: - S/P diltiazem drip. Hold home antihypertensives, with the exception of atenolol, for now. - Discussed anticoagulation with patient. Will hold off due to history of significant GI bleeding of unknown etiology and h/o colon cancer. - Converted to sinus rhythm 2/5th AM - Pt w/out S&S of heart failure, no murmers. Outpt ECHO. (2) Colon cancer: Status: Chronic Problem details: Stage II, under the care of [place] (3) Alcohol abuse: Status: Chronic Problem details: - Discussed with patient how alcohol use can contribute to atrial fibrillation and recommended abstinence - Monitor for withdrawal, may need CIWA (4) Hypertension: Status: Chronic DS: Summary Hospital Course Hospital Course: Pt admitted for afib rvr, Tx started w/ Dilt pushes and a drip until pt converted to sinus rhythm. No SOB, orthopnea or PNDs. P/E no JVD, S3, murmers, crackles or LE edema, Recommended outpt ECHO. Cont pt's home atenolol. Discussed anticoagulation with patient. Will hold off due to history of significant GI bleeding of unknown etiology and h/o colon cancer. Time Spent with Patient Time attestation: Total time spent providing and/or coordinating discharge services: Exam Narrative: Exam Narrative: Physical exam GENERAL: Comfortable, no acute distress. HEAD AND NECK: Atraumatic, normocephalic, No JVD CARDIOVASCULAR: RRR. Normal S1, S2. No murmurs. No S3. No LE edema RESPIRATORY: Clear to auscultation B/L. Good air entry B/L. No wheezes or rhonchi. No crackles GASTROINTESTINAL: Not distended, not tender to palpation. NEUROLOGY: Alert, awake, oriented X 3. Normal speech. PSYCH: Normal mood, normal affect. Const: Vital Signs, click to edit/add: Vital Signs - 24 hr 08/07/24 11:31 08/07/24 12:04 08/07/24 15:22 Temperature Pulse Rate 47 L 52 L Pulse Rate [Left R adial] 48 L Respiratory Rate 14 Blood Pressure [Ri ght Arm] 119/64 Pulse Oximetry 95 Oxygen Delivery Me thod Room Air 08/07/24 15:36 08/07/24 15:37 08/07/24 18:51 Temperature 97.7 F Pulse Rate Pulse Rate [Left R adial] 48 L 59 L 51 L Respiratory Rate 14 16 Blood Pressure [Ri ght Arm] 118/62 Pulse Oximetry 96 Oxygen Delivery Me thod Room Air 08/07/24 19:18 08/07/24 19:24 08/07/24 22:39 Temperature 97.2 F L 97.4 F L Pulse Rate 62 Pulse Rate [Left R adial] 62 64 Respiratory Rate 16 16 Blood Pressure [Ri ght Arm] 121/67 143/75 H Pulse Oximetry 97 97 Oxygen Delivery De thod Room Air Room Air 08/07/24 22:42 08/07/24 23:06 08/07/24 23:12 Temperature 97.4 F L Pulse Rate 55 L Pulse Rate [Left R adial] 64 Respiratory Rate 16 Blood Pressure [Ri ght Arm] Pulse Oximetry Oxygen Delivery Me thod 08/08/24 01:56 08/08/24 02:40 08/08/24 07:19 Temperature 97.6 F Pulse Rate 61 59 L Pulse Rate [Left R adial] 60 Respiratory Rate 16 Blood Pressure [Ri ght Arm] 144/73 H Pulse Oximetry 95 Oxygen Delivery De thod Room Air 08/08/24 07:30 08/08/24 07:45 Temperature 97.5 F L Pulse Rate Pulse Rate [Left R adial] 64 64 Respiratory Rate 18 18 Blood Pressure [Ri ght Arm] 170/76 H Pulse Oximetry 98 Oxygen Delivery De thod Room Air DS: Data Data Completed and Pending Labs on day of discharge: Labs from last 24 hours 08/08/24 06:12 Sodium 137 Potassium 4.0 Chloride 106 Carbon Dioxide 23 Anion Gap 8 BUN 17 Creatinine 0.7 Estimated Creat Clear 50.41 Estimated GFR 94 Glucose 107 Calcium 8.8 Magnesium 1.8 Discharge Plan Discharge Disposition: Home, Self-Care Date of Admission: 08/07/24 01:03 Attending Provider on Discharge: Edwige Walter Primary Care Provider: Marisol Garcia Condition: Improved Anticipated Discharge Date/Time: 08/08/24 10:19 Discharge Medications: Continued amlodipine [Norvasc] 10 mg tablet 5 mg PO DAILY lisinopril 40 mg tablet 40 mg PO DAILY Qty: 90 3RF atenolol 25 mg tablet 25 mg PO DAILY Discharge Orders: Discharge Order (Routine); Ordered 08/08/24 Ordered By: Edwige Walter Patient Education: A-fib (Atrial Fibrillation) (IP) Additional Instructions: YOU NEED TO FOLLOW-UP WITH YOUR PRIMARY CARE PHYSICIAN IN 1 WEEK. WE RECOMMEND THAT YOU HAVE AN ECHOCARDIOGRAM AN OUTPATIENT, PLEASE DISCUSS THIS WITH YOUR PRIMARY CARE PHYSICIAN. Activity Level: Activity as Tolerated Discharge Diet: Heart Healthy (2 gm sodium, low fat) Follow Up Appointments: Marisol Garcia, [employer]LECTIONS OFFICER, [facility] [Primary Care Provider] - 08/15/24 11:15 am ([facility] for follow-up.) Forms: [facility], [facility]
--- NOTE | 2024-08-08 12:10 | PC.NURSE ---
discharge . pt has been very pleasant. tele shows NSR Sinus [place]. she is eating, drinking and voiding. SL is patent. discharge was done
== END 2024-08-08 12:00 | disposition home or self-care (01) | DRG 309 ==
LOC: ED 22:36 → MEDSURG 22:50
PROVIDERS: Student in an Organized Health Care Education/Training Program; Admitting Provider Family Medicine; Emergency Provider Emergency Medicine; PCP Nurse Practitioner Family; Visit Provider Family Medicine
DX: I48.91 Unspecified atrial fibrillation (principal); C18.9 Malignant neoplasm of colon, unspecified; I10 Essential (primary) hypertension; F10.10 Alcohol abuse, uncomplicated; Z86.79 Personal history of other diseases of the circulatory system
CPT/HCPCS: 36415; 80048; 83735; 84443; 84484; 85025; 93005; 94761; 99284; 99285; A9270; G0378; J3490; J7030

== ENCOUNTER 2024-08-30 13:46 | Outpatient (CLI) | payer MEDICARE, SELFPAY | END 2024-08-30 13:47 | disposition home or self-care (01) | LOC: RAD 13:46 | PROVIDERS: PCP Nurse Practitioner Family; Visit Provider Nurse Practitioner Family | DX: I48.0 Paroxysmal atrial fibrillation (principal); I51.7 Cardiomegaly; I35.1 Nonrheumatic aortic (valve) insufficiency; I34.0 Nonrheumatic mitral (valve) insufficiency; I07.1 Rheumatic tricuspid insufficiency | CPT/HCPCS: 93306 ==

== ENCOUNTER 2025-02-18 04:25 | Outpatient (CLI) | payer MEDICARE, SELFPAY | END 2025-02-18 04:26 | disposition home or self-care (01) | LOC: KYNREF 07:57 | PROVIDERS: PCP Nurse Practitioner Family; Visit Provider Nurse Practitioner Family | DX: E78.5 Hyperlipidemia, unspecified (principal) | CPT/HCPCS: 80061 ==

== ENCOUNTER 2025-05-23 11:57 | Outpatient (CLI) | payer MEDICARE, SELFPAY | END 2025-05-23 11:58 | disposition home or self-care (01) | PROVIDERS: PCP Nurse Practitioner Family; Visit Provider Nurse Practitioner Family | DX: E78.5 Hyperlipidemia, unspecified (principal); Z13.0 Encounter for screening for diseases of the blood and blood-forming organs and certain disorders involving the immune mechanism; I10 Essential (primary) hypertension | CPT/HCPCS: 80053; 80061; 85025 ==